=== PATIENT | female | born 1955 | race Caucasian/White ===

== ENCOUNTER → 2023-12-20 13:50 | Outpatient (CLI) | payer MEDICARE, OTHER, SELFPAY ==
--- NOTE | 2023-12-20 13:52 | DI.MG.S_ITS ---
BILATERAL DIGITAL SCREENING MAMMOGRAM 3D/2D WITH CAD: 12/20/2023 CLINICAL: Routine screening. Comparison is made to exams dated: 07/22/2021 mammogram, 07/16/2020 mammogram, and 05/08/2019 mammogram - outside location. Both breasts are heterogeneously dense, which may obscure small masses (category c / 51-75% glandular tissue). Current study was also evaluated with a Computer Aided Detection (CAD) system. No significant masses, calcifications, or other findings are seen in either breast. There has been no significant interval change. IMPRESSION: NEGATIVE There is no mammographic evidence of malignancy. A 1 year screening mammogram is recommended. Based on the Tyrer Cuzick model (a risk assessment model) the patient's lifetime risk is 8.0% and her 10 year risk is 4.1%. According to the ACR, ACS, and NCCN guidelines, an annual breast MRI exam along with mammogram is recommended if the patient's lifetime risk is 20% or greater. This exam was interpreted at Station ID: [id number]. NOTE: For mammograms, a report in lay terms will be sent to the patient. Approximately 15% of breast malignancies will not be visualized mammographically. In the management of a palpable breast mass, a negative mammogram must not discourage biopsy of a clinically suspicious lesion. Electronically Signed By: Guillermo [email or web address]:12/20/2023 14:22:15 letter sent: Normal Exam ACR BI-RADS Category 1: Negative 3341F
== END ==
PROVIDERS: PCP Student in an Organized Health Care Education/Training Program; Referring Provider Student in an Organized Health Care Education/Training Program; Visit Provider Student in an Organized Health Care Education/Training Program
DX: Z12.31 Encounter for screening mammogram for malignant neoplasm of breast (principal); R92.333 Mammographic heterogeneous density, bilateral breasts
CPT/HCPCS: 77063; 77067

== ENCOUNTER → 2024-10-02 07:04 | Outpatient (CLI) | payer MEDICARE, OTHER, SELFPAY ==
[2024-10-02 07:58] LABS: Add Manual Diff / Slide Review NO; Basophils Absolute Auto 100 /uL (0-100); Basophils Percent Auto 1.5 % (0-2); Eosinophils Absolute Auto 400 /uL (0-450); Eosinophils Percent Auto 8.3 % (2-4); Hematocrit 36.7 % (36-46); Hemoglobin 12.5 g/dL (12.0-16.0); Lymphocytes Absolute Auto 2000 /uL (1100-4500); Lymphocytes Percent Auto 44.3 % (25-40); Mean Corpuscular Hemoglobin 30.3 PG (26-34); Mean Corpuscular Volume 89.1 fL (80-100); Monocytes Absolute Auto 400 /uL (0-900); Monocytes Percent Auto 8.3 % (3-14); Neutrophils Absolute Auto 1700 /uL (1500-7000); Neutrophils Percent Auto 37.6 % (50-75); Platelet Count 224 X10^3/uL (150-400); Red Blood Cell Count 4.12 X10^6/uL (4.0-5.2); Red Cell Distribution Width 13.1 % (11.6-14.8); White Blood Cell Count 4.5 X10^3/uL (4.5-11.0)
[2024-10-02 08:17] LABS: Creatinine Urine Random 217.29 mg/dL
[2024-10-02 08:25] LABS: Alanine Aminotransferase 33 IU/L (<35); Albumin 4.2 g/dL (3.5-5.0); Albumin Globulin Ratio 1.6 (1.0-2.8); Alkaline Phosphatase 77 U/L (38-126); Aspartate Aminotransferase 57 IU/L (14-36); BUN Creatinine Ratio 23.5 (6-22); Bilirubin Total 0.6 mg/dL (0.2-1.3); Blood Urea Nitrogen 24 mg/dL (7-17); Calcium 9.5 mg/dL (8.4-10.2); Carbon Dioxide 26 mmol/L (22-32); Chloride 103 mmol/L (98-107); Cholesterol 231 mg/dL (140-199); Estimated Glomerular Filt Rate > 60 mL/min (>60); Globulin 2.7 g/dL (1.7-4.1); Glucose 95 mg/dL (80-110); HDL Cholesterol 99 mg/dL (40-60); HEMOLYSIS < 15 (0-50); LDL Cholesterol Calculated 120 mg/dL (<100); Potassium 4.2 mmol/L (3.4-5.1); Sodium 137 mmol/L (137-145); Total Protein 6.9 g/dL (6.3-8.2); Triglycerides 61 mg/dL (35-150)
== END ==
PROVIDERS: PCP Student in an Organized Health Care Education/Training Program; Referring Provider Student in an Organized Health Care Education/Training Program; Visit Provider Student in an Organized Health Care Education/Training Program
DX: I10 Essential (primary) hypertension (principal)
CPT/HCPCS: 36415; 80053; 80061; 82043; 82570; 85025

== ENCOUNTER → 2025-01-10 13:47 | Outpatient (CLI) | payer MEDICARE, OTHER, SELFPAY ==
--- NOTE | 2025-01-10 13:48 | DI.MG.S_ITS ---
MM screening mammo BI: 01/10/2025. BI-RADS: 1 CLINICAL: 69-year old female for bilateral screening mammogram. Tyrer-Cuzick lifetime risk of 5.8%. No personal or first-degree family history of breast cancer. PRIOR EXAMS 12/20/2023, outside priors 07/22/2021, 07/16/2020, and 04/13/2018. MAMMOGRAPHY TECHNIQUE: 2D and 3D (tomosynthesis) digital mammographic views obtained, with additional images as needed for full coverage. Current study was also evaluated with a Computer Aided Detection (CAD) system. DENSITY C. The breasts are heterogeneously dense, which may obscure small masses. MAMMOGRAPHY FINDINGS Bilateral: No suspicious mass, asymmetry, microcalcification, or other abnormality seen. No significant change from comparison. IMPRESSION: * No evidence of malignancy. RECOMMENDATIONS Bilateral * Annual screening mammography. OVERALL ASSESSMENT CATEGORY BI-RADS-1: Negative. The [employer] recommends annual screening mammography beginning at age 40 for women with average risk of breast cancer. ELECTRONICALLY SIGNED: Lizbet Chi M.D. on 01/10/2025 at 11:46:28 PM PT Interpreting Station ID: [id number]
== END ==
LOC: MAMMO 13:48
PROVIDERS: Family Provider Student in an Organized Health Care Education/Training Program; PCP Student in an Organized Health Care Education/Training Program; Referring Provider Student in an Organized Health Care Education/Training Program; Visit Provider Student in an Organized Health Care Education/Training Program
DX: Z12.31 Encounter for screening mammogram for malignant neoplasm of breast (principal); R92.333 Mammographic heterogeneous density, bilateral breasts
CPT/HCPCS: 77063; 77067

== ENCOUNTER 2025-01-16 17:00 | Outpatient (RCR) | payer MEDICARE, OTHER, SELFPAY ==
--- NOTE | 2024-11-06 15:11 | PT.OIE ---
Current Diagnoses Pain in left knee (11/06/24) Other specified postprocedural states (11/06/24) Past Medical History (Last Updated 07/11/23 @ 19:27 by Katia Tam) Hypertension Past Surgical History (Last Updated 07/11/23 @ 19:27 by Katia Tam) Anesthesia History of arthroscopic knee surgery (~03/2010) History of bilateral carpal tunnel release S/P LASIK surgery of both eyes (~2004) Status post total hip replacement, right (~02/16/23) Tibia fracture (~09/08/00) Visit Care Team Role Provider Type Viridiana Carson MD Attending Provider Physician Family Provider Primary Care Provider Referring Provider Specialty: Family Practice Obstetrics Address: [address] [place] [address], [facility] Email: [email or web address] Physical Therapy Initial Evaluation PT-OP-A Visit Information Start: 11/01/24 17:23 Freq: Status: Active Protocol: Document 11/06/24 07:30 [facility] (Rec: 11/06/24 08:19 [facility] [id number]) Out-Patient Physical Therapy Visit Information Visit Information Visit Type Initial Evaluation Visit Start Time 07:32 Visit Number 1 Number of SCREEN CUTTER AND TRIMMER Visits 0 PT-OP-B Current Condition Start: 11/01/24 17:23 Freq: Status: Active Protocol: Document 11/06/24 07:30 [facility] (Rec: 11/06/24 08:19 [facility] [id number]) Current Condition History of Current Condition Onset Date progressive worse since 2009 Current Complaints L knee pain History of Current Condition Pt reports she is very active and when she has been dong things then sits then when she gets up, she has to be slow because it feels like she can' t put weight into her knee and get moving right away. M,W, F goes for weight classes and goes 2-4 mile walks. Her knee can get tired after walks. Had R WILSON 2 years ago that is good. She does short bouts of run. She had med meniscectomy in 2009 after injury when windsurfing. Did PT after, but only did a couple sessions then worked on her own. Since then over time, she thinks she got some scaring and now she is noticing her flexibility is worse and doesn't have the same ROM in knee. In 2000, broke tibia and fibula when skiing and still has a miranda and screws there. Notes more swelling in L knee. In 2017, went to see ortho d/t c/o pain in knee and the doctor thought she may need knee replacement. She has been able to avoid TKA so far. Does not feel pain typically when up or when doing exercise classes . After pickleball and doing her daily activities and sits int he evening, then it hurts when she stands up from sitting. When doing yoga, notices change in her flexibility. used to go to line dancing but it is a lot of lateral movement and she would have pain in her knee. Denies back pain. L post hip occ feels something but not super frequent. Treatment Goals Patient/Caregiver Goals get flexibility, PT-OP-C Subjective Start: 11/01/24 17:23 Freq: Status: Active Protocol: Document 11/06/24 07:30 [facility] (Rec: 11/06/24 08:19 [facility] [id number]) Patient Questionnaires Lower Extremity Functional Scale LEFS Score 68 OP-PT Pain Assessment Location L knee Pain Location Details L post and lat knee, ant knee, and deep inside Description Aching Description- Other swelling, weak Frequency Intermittent Variations/Patterns post knee and into calf sore/ weak Pain Aggravating Factors Bending Other Pain Aggravating Factors get up from sitting, walk >2 miles PT-OP-D Balance Start: 11/01/24 17:23 Freq: Status: Active Protocol: Document 11/06/24 07:30 [facility] (Rec: 11/06/24 08:19 [facility] [id number]) Balance Tests Single Limb Standing Single Limb- Right >30 sec Single Limb- Left >30sec PT-OP-G Mobility & Gait Start: 11/01/24 17:23 Freq: Status: Active Protocol: Document 11/06/24 07:30 [facility] (Rec: 11/06/24 08:19 [facility] [id number]) OP Gait Assessment Comments Gait Comments harder impact on LLE w/dec push off R>L, L hip add and IR during swing PT-OP-J Posture/Palpation/Skin Start: 11/01/24 17:23 Freq: Status: Active Protocol: Document 11/06/24 07:30 [facility] (Rec: 11/06/24 08:19 [facility] [id number]) Posture Evaluation [facility] Postural Classification System Lumbar Protective Mechanism Left AP 1 Lumbar Protective Mechanism Right AP 2 Lumbar Protective Mechanism Left PA 3 Lumbar Protective Mechanism Right PA 2 Comments Posture Comments varus of L tibia, L>R femoral IR, tibial ER L, B hallux valgus, valgus L rearfoot PT-OP-K Range of Motion Start: 11/01/24 17:23 Freq: Status: Active Protocol: Document 11/06/24 07:30 [facility] (Rec: 11/06/24 08:19 [facility] [id number]) Knee Goniometric Range of Motion Knee Right Flexion Active (degrees) 134 Hyper-Extension Active 3 Left Flexion Active (degrees) 120 Extension Active (degrees) 5 PT-OP-L Special Tests Start: 11/01/24 17:23 Freq: Status: Active Protocol: Document 11/06/24 07:30 [facility] (Rec: 11/06/24 08:19 [facility] [id number]) Special Tests Knee Special Tests Straight Leg Raise Test Results WNL about 90 deg B Ian Comments quad and RF tightness L, R RF tightness Thessaly Test 20 Degrees Comments neg L Apley's Compression Comments neg L Jose Antonio Test Comments neg L Varus- 25 Degrees Comments neg L Valgus- 25 Degrees Comments neg L Posterior Draw Comments neg L Esteban's Comments neg L PT-OP-M Strength Start: 11/01/24 17:23 Freq: Status: Active Protocol: Document 11/06/24 07:30 [facility] (Rec: 11/06/24 08:19 [facility] [id number]) Hip Strength Hip Manual Muscle Testing Right Flexion (L2) 4+ Good+ Extension (S1) 4 Good Abduction 4 Good Adduction 5 Normal External Rotation 4+ Good+ Internal Rotation 5 Normal Left Flexion (L2) 4- Good- Extension (S1) 4 Good Abduction 4 Good Adduction 5 Normal External Rotation 5 Normal Internal Rotation 5 Normal Knee Strength Knee Manual Muscle Testing Right Flexion (S2) 5 Normal Extension (L3) 5 Normal Left Flexion (S2) 5 Normal Extension (L3) 5 Normal Ankle/Foot Strength Ankle and Foot Manual Muscle Testing Right Dorsiflexion (L4) 5 Normal Plantarflexion (S1) 5 Normal Comments 20 heel raises B Left Dorsiflexion (L4) 5 Normal Plantarflexion (S1) 5 Normal Comments discomfort in ankle PT-OP-Q Treatments Start: 11/01/24 17:23 Freq: Status: Active Protocol: Document 11/06/24 07:30 [facility] (Rec: 11/06/24 08:19 [facility] [id number]) Self-Care/Home Management Treatment Education Other Education 10 min: edu on foot position including her big toe position may be related ot her gait, edu on limping w/gait likely affecting her, edu that we may be able to get more ROM w/jt mobs and STM, edu glute weakness PT-OP-T Assessment and Plan Start: 11/01/24 17:23 Freq: Status: Active Protocol: Document 11/06/24 07:30 [facility] (Rec: 11/06/24 08:19 [facility] [id number]) Physical Therapy Assessment Rehab Potential Rehabilitation Potential Good Evaluation Complexity Number of Personal Factors/Comorbidities 3 or More Number of Body Systems Impaired 4 or More Clinical Presentation at Evaluation Evolving Impairments Impairments Activity Tolerance,Balance, Functional Activities, Functional Mobility,Gait,Pain, Posture,ROM,Soft Tissue Mobility,Strength,Transfers Goals ROM Short Term Goal (STG) Pt will have full knee ext w/o inc pain in L knee STG Duration 12/16 Building Repair Maintenance Supervisor Goal (LTG) Pt will have at least 130 deg flex L knee to allow greater ease w/yoga activities LTG Duration / strength Building Repair Maintenance Supervisor Goal (LTG) pt will score at least 5/5 on BLE MMT to show improved stability in order to allow greater ease with activity. LTG Duration 01/15 pain Building Repair Maintenance Supervisor Goal (LTG) Pt will report being able to consistantly transition from sitting to standing w/o inc pain or feeling of lack of stability. LTG Duration 01/15 Assessment Summary Assessment Pt presents w/L knee pain that has gotten worse since meniscectomy that she never fully recovered from in 2009. She has lost flex ROM in the knee in the past couple of years, and feels like dec overall L knee flexibility. She also gets stiffness in knee when sitting extended and then stands and has pain in L knee and she cannot WB into L knee at that time. She has weakness and dec L knee ROM notable today along w/postural changes of LLE. She would benefit from skilled PT to address these deficits and improve mobility Physical Therapy Plan Frequency and Duration Frequency of Treatment 2x/Week Duration of treatment (weeks) 10 Plan of Care Start Date 11/06/24 Plan of Care End Date 01/15/25 Therapeutic Interventions Therapeutic Interventions Balance Training,Gait Training ,Home Exercise Program,Joint Mobilizations,Manual Therapy, Neuromuscular Re-education, Patient/Caregiver Education, Self-Care/Home Management,Soft Tissue Mobilization,Taping, Therapeutic Activities, Therapeutic Exercises Modalities Cold Pack/Ice Massage,Electric Stimulation,Hot Packs, Infrared Therapy,Ultrasound Next Visit Focus/Plan Next Note Type Treatment Note Next Visit Plan review ian test stretch, HEP: sidesteps, sit to stands or squats, lunges, manual for knee tracking and flex of L knee, SL bridges, exercises for flex of L knee
--- NOTE | 2024-11-06 15:11 | PT.OPPOC ---
Physical, Occupational & Speech Therapy At [facility] Current Diagnoses Pain in left knee (11/06/24) Other specified postprocedural states (11/06/24) Visit Care Team Role Provider Type Viridiana Carson MD Attending Provider Physician Family Provider Primary Care Provider Referring Provider Specialty: Family Practice Obstetrics Address: [address] [place] [address], [facility] Email: [email or web address] Plan Of Care PT-OP-B Current Condition Start: 11/01/24 17:23 Freq: Status: Active Protocol: Document 11/06/24 07:30 [facility] (Rec: 11/06/24 08:19 [facility] [id number]) Current Condition History of Current Condition Onset Date progressive worse since 2009 Current Complaints L knee pain History of Current Condition Pt reports she is very active and when she has been dong things then sits then when she gets up, she has to be slow because it feels like she can' t put weight into her knee and get moving right away. M,W, F goes for weight classes and goes 2-4 mile walks. Her knee can get tired after walks. Had R WLISON 2 years ago that is good. She does short bouts of run. She had med meniscectomy in 2009 after injury when windsurfing. Did PT after, but only did a couple sessions then worked on her own. Since then over time, she thinks she got some scaring and now she is noticing her flexibility is worse and doesn't have the same ROM in knee. In 2000, broke tibia and fibula when skiing and still has a miranda and screws there. Notes more swelling in L knee. In 2017, went to see ortho d/t c/o pain in knee and the doctor thought she may need knee replacement. She has been able to avoid TKA so far. Does not feel pain typically when up or when doing exercise classes . After pickleball and doing her daily activities and sits int he evening, then it hurts when she stands up from sitting. When doing yoga, notices change in her flexibility. used to go to line dancing but it is a lot of lateral movement and she would have pain in her knee. Denies back pain. L post hip occ feels something but not super frequent. Treatment Goals Patient/Caregiver Goals get flexibility, PT-OP-T Assessment and Plan Start: 11/01/24 17:23 Freq: Status: Active Protocol: Document 11/06/24 07:30 [facility] (Rec: 11/06/24 08:19 [facility] [id number]) Physical Therapy Assessment Rehab Potential Rehabilitation Potential Good Evaluation Complexity Number of Personal Factors/Comorbidities 3 or More Number of Body Systems Impaired 4 or More Clinical Presentation at Evaluation Evolving Impairments Impairments Activity Tolerance,Balance, Functional Activities, Functional Mobility,Gait,Pain, Posture,ROM,Soft Tissue Mobility,Strength,Transfers Goals ROM Short Term Goal (STG) Pt will have full knee ext w/o inc pain in L knee STG Duration 12/16 Calibration Tester Goal (LTG) Pt will have at least 130 deg flex L knee to allow greater ease w/yoga activities LTG Duration 01/15 strength Calibration Tester Goal (LTG) pt will score at least 5/5 on BLE MMT to show improved stability in order to allow greater ease with activity. LTG Duration 01/15 pain Jail Goal (LTG) Pt will report being able to consistantly transition from sitting to standing w/o inc pain or feeling of lack of stability. LTG Duration 01/15 Assessment Summary Assessment Pt presents w/L knee pain that has gotten worse since meniscectomy that she never fully recovered from in 2009. She has lost flex ROM in the knee in the past couple of years, and feels like dec overall L knee flexibility. She also gets stiffness in knee when sitting extended and then stands and has pain in L knee and she cannot WB into L knee at that time. She has weakness and dec L knee ROM notable today along w/postural changes of LLE. She would benefit from skilled PT to address these deficits and improve mobility Physical Therapy Plan Frequency and Duration Frequency of Treatment 2x/Week Duration of treatment (weeks) 10 Plan of Care Start Date 11/06/24 Plan of Care End Date 01/15/25 Therapeutic Interventions Therapeutic Interventions Balance Training,Gait Training ,Home Exercise Program,Joint Mobilizations,Manual Therapy, Neuromuscular Re-education, Patient/Caregiver Education, Self-Care/Home Management,Soft Tissue Mobilization,Taping, Therapeutic Activities, Therapeutic Exercises Modalities Cold Pack/Ice Massage,Electric Stimulation,Hot Packs, Infrared Therapy,Ultrasound Next Visit Focus/Plan Next Note Type Treatment Note Next Visit Plan review kelsi test stretch, HEP: sidesteps, sit to stands or squats, lunges, manual for knee tracking and flex of L knee, SL bridges, exercises for flex of L knee Plan of Care Dates Plan of Care Start Date 11/06/24 Plan of Care End Date 01/15/25 Electronically Signed by: Latia Hunter, PT 11/06/24 [id number] If you are in agreement with this Plan of Care, please return a signed and dated copy. I have reviewed this Plan of Care and certify that the skilled therapy services above are required to meet the patient?s needs. Physician Signature Date Printed Name and Credentials Clinical Instructor Signature Printed Name and Credentials
--- NOTE | 2024-11-08 08:20 | PT.OTN ---
Current Diagnoses Pain in left knee (11/08/24) Other specified postprocedural states (11/08/24) Physical Therapy Treatment Note PT-OP-A Visit Information Start: 11/01/24 17:23 Freq: Status: Active Protocol: Document 11/08/24 07:29 [facility] (Rec: 11/08/24 08:19 [facility] [id number]) Out-Patient Physical Therapy Visit Information Visit Information Visit Type Treatment Note Visit Start Time 07:32 Visit Stop Time 08:12 Visit Number 2 Number of SINGING TELEGRAM PERFORMER Visits 0 PT-OP-B Current Condition Start: 11/01/24 17:23 Freq: Status: Active Protocol: Document 11/06/24 07:30 [facility] (Rec: 11/06/24 08:19 [facility] [id number]) Current Condition History of Current Condition Onset Date progressive worse since 2009 Current Complaints L knee pain History of Current Condition Pt reports she is very active and when she has been dong things then sits then when she gets up, she has to be slow because it feels like she can' t put weight into her knee and get moving right away. M,W, F goes for weight classes and goes 2-4 mile walks. Her knee can get tired after walks. Had R WILSON 2 years ago that is good. She does short bouts of run. She had med meniscectomy in 2009 after injury when windsurfing. Did PT after, but only did a couple sessions then worked on her own. Since then over time, she thinks she got some scaring and now she is noticing her flexibility is worse and doesn't have the same ROM in knee. In 2000, broke tibia and fibula when skiing and still has a miranda and screws there. Notes more swelling in L knee. In 2017, went to see ortho d/t c/o pain in knee and the doctor thought she may need knee replacement. She has been able to avoid TKA so far. Does not feel pain typically when up or when doing exercise classes . After pickleball and doing her daily activities and sits int he evening, then it hurts when she stands up from sitting. When doing yoga, notices change in her flexibility. used to go to line dancing but it is a lot of lateral movement and she would have pain in her knee. Denies back pain. L post hip occ feels something but not super frequent. Treatment Goals Patient/Caregiver Goals get flexibility, PT-OP-C Subjective Start: 11/01/24 17:23 Freq: Status: Active Protocol: Document 11/08/24 07:29 [facility] (Rec: 11/08/24 08:19 [facility] [id number]) OP-PT Subjective Patient Comments Patient Comments unable to do ian test on bed PT-OP-D Balance Start: 11/01/24 17:23 Freq: Status: Active Protocol: Document 11/06/24 07:30 [facility] (Rec: 11/06/24 08:19 [facility] [id number]) Balance Tests Single Limb Standing Single Limb- Right >30 sec Single Limb- Left >30sec PT-OP-G Mobility & Gait Start: 11/01/24 17:23 Freq: Status: Active Protocol: Document 11/06/24 07:30 [facility] (Rec: 11/06/24 08:19 [facility] [id number]) OP Gait Assessment Comments Gait Comments harder impact on LLE w/dec push off R>L, L hip add and IR during swing PT-OP-J Posture/Palpation/Skin Start: 11/01/24 17:23 Freq: Status: Active Protocol: Document 11/06/24 07:30 [facility] (Rec: 11/06/24 08:19 [facility] [id number]) Posture Evaluation [facility]in Postural Classification System Lumbar Protective Mechanism Left AP 1 Lumbar Protective Mechanism Right AP 2 Lumbar Protective Mechanism Left PA 3 Lumbar Protective Mechanism Right PA 2 Comments Posture Comments varus of L tibia, L>R femoral IR, tibial ER L, B hallux valgus, valgus L rearfoot PT-OP-K Range of Motion Start: 11/01/24 17:23 Freq: Status: Active Protocol: Document 11/06/24 07:30 [facility] (Rec: 11/06/24 08:19 [facility] [id number]) Knee Goniometric Range of Motion Knee Right Flexion Active (degrees) 134 Hyper-Extension Active 3 Left Flexion Active (degrees) 120 Extension Active (degrees) 5 PT-OP-L Special Tests Start: 11/01/24 17:23 Freq: Status: Active Protocol: Document 11/06/24 07:30 [facility] (Rec: 11/06/24 08:19 [facility] [id number]) Special Tests Knee Special Tests Straight Leg Raise Test Results WNL about 90 deg B Ian Comments quad and RF tightness L, R RF tightness Thessaly Test 20 Degrees Comments neg L Apley's Compression Comments neg L Jose Antonio Test Comments neg L Varus- 25 Degrees Comments neg L Valgus- 25 Degrees Comments neg L Posterior Draw Comments neg L Esteban's Comments neg L PT-OP-M Strength Start: 11/01/24 17:23 Freq: Status: Active Protocol: Document 11/06/24 07:30 [facility] (Rec: 11/06/24 08:19 [facility] [id number]) Hip Strength Hip Manual Muscle Testing Right Flexion (L2) 4+ Good+ Extension (S1) 4 Good Abduction 4 Good Adduction 5 Normal External Rotation 4+ Good+ Internal Rotation 5 Normal Left Flexion (L2) 4- Good- Extension (S1) 4 Good Abduction 4 Good Adduction 5 Normal External Rotation 5 Normal Internal Rotation 5 Normal Knee Strength Knee Manual Muscle Testing Right Flexion (S2) 5 Normal Extension (L3) 5 Normal Left Flexion (S2) 5 Normal Extension (L3) 5 Normal Ankle/Foot Strength Ankle and Foot Manual Muscle Testing Right Dorsiflexion (L4) 5 Normal Plantarflexion (S1) 5 Normal Comments 20 heel raises B Left Dorsiflexion (L4) 5 Normal Plantarflexion (S1) 5 Normal Comments discomfort in ankle PT-OP-Q Treatments Start: 11/01/24 17:23 Freq: Status: Active Protocol: Document 11/08/24 07:29 [facility] (Rec: 11/08/24 08:19 [facility] [id number]) Therapeutic Exercises Supine Exercises bridges Supine Exercise Name marching Side bilateral Reps/Minutes 15 ea Standing Exercises stretch Side left Equipment Used chair Reps/Minutes 30 sec x2 sidesteps Side bilateral Equipment Used L2 at ankles Reps/Minutes 15ft x2ea lunges Standing Exercise Name 1. lunges 2. lat lunges Side bilateral Equipment Used mirror Reps/Minutes 15 ea Comments cues for knee and hip position squats Side bilateral Equipment Used L2 at knees and mirror Reps/Minutes 2x12 Comments cues knee position Manual Therapy Treatment Consent Patient gave verbal consent for manual Yes treatment Soft Tissue Mobilization Quad Body Location L lat Mobilization Type Rolling Intensity/Depth Moderate Body Position Hooklying ITB Body Location L Mobilization Type Rolling Intensity/Depth Moderate Joint Mobilizations tibfib Joint L proximal PA Grade III tibiofemoral Grade III Comments AP tibia and femur w/flex c/r; PA patellofemoral Joint L superior, inferior, medial PT-OP-T Assessment and Plan Start: 11/01/24 17:23 Freq: Status: Active Protocol: Document 11/08/24 07:29 [facility] (Rec: 11/08/24 08:19 [facility] [id number]) Physical Therapy Assessment Goals ROM Short Term Goal (STG) Pt will have full knee ext w/o inc pain in L knee STG Duration 12/16 Shelter Goal (LTG) Pt will have at least 130 deg flex L knee to allow greater ease w/yoga activities LTG Duration 01/15 strength Shelter Goal (LTG) pt will score at least 5/5 on BLE MMT to show improved stability in order to allow greater ease with activity. LTG Duration 01/15 pain Shelter Goal (LTG) Pt will report being able to consistantly transition from sitting to standing w/o inc pain or feeling of lack of stability. LTG Duration 01/15 Assessment Summary Assessment Pt had improved form with some of her common exercises after cues today. Needed cues throughout those exercises. She does tend to have difficulty with appropriate knee tracking unless using a mirror or cues. Significant quad tightness noted Physical Therapy Plan Frequency and Duration Frequency of Treatment 2x/Week Duration of treatment (weeks) 10 Plan of Care Start Date 11/06/24 Plan of Care End Date 01/15/25 Next Visit Focus/Plan Next Note Type Treatment Note Next Visit Plan review exercises; manual to quads/ITB-consider cupping, joint mobs to hip, ankle and knee for knee tracking
--- NOTE | 2024-11-13 08:16 | PT.OTN ---
Current Diagnoses Pain in left knee (11/13/24) Other specified postprocedural states (11/13/24) Physical Therapy Treatment Note PT-OP-A Visit Information Start: 11/01/24 17:23 Freq: Status: Active Protocol: Document 11/13/24 07:34 [facility] (Rec: 11/13/24 09:03 [facility] [id number]) Out-Patient Physical Therapy Visit Information Visit Information Visit Type Treatment Note Visit Start Time 07:34 Visit Stop Time 08:16 Visit Number 3 Number of SENIOR PIPING DESIGNER Visits 1 PT-OP-B Current Condition Start: 11/01/24 17:23 Freq: Status: Active Protocol: Document 11/06/24 07:30 [facility] (Rec: 11/06/24 08:19 [facility] [id number]) Current Condition History of Current Condition Onset Date progressive worse since 2009 Current Complaints L knee pain History of Current Condition Pt reports she is very active and when she has been dong things then sits then when she gets up, she has to be slow because it feels like she can' t put weight into her knee and get moving right away. M,W, F goes for weight classes and goes 2-4 mile walks. Her knee can get tired after walks. Had R WILSON 2 years ago that is good. She does short bouts of run. She had med meniscectomy in 2009 after injury when windsurfing. Did PT after, but only did a couple sessions then worked on her own. Since then over time, she thinks she got some scaring and now she is noticing her flexibility is worse and doesn't have the same ROM in knee. In 2000, broke tibia and fibula when skiing and still has a miranda and screws there. Notes more swelling in L knee. In 2017, went to see ortho d/t c/o pain in knee and the doctor thought she may need knee replacement. She has been able to avoid TKA so far. Does not feel pain typically when up or when doing exercise classes . After pickleball and doing her daily activities and sits int he evening, then it hurts when she stands up from sitting. When doing yoga, notices change in her flexibility. used to go to line dancing but it is a lot of lateral movement and she would have pain in her knee. Denies back pain. L post hip occ feels something but not super frequent. Treatment Goals Patient/Caregiver Goals get flexibility, PT-OP-C Subjective Start: 11/01/24 17:23 Freq: Status: Active Protocol: Document 11/13/24 07:34 [facility] (Rec: 11/13/24 09:03 [facility] [id number]) OP-PT Subjective Patient Comments Patient Comments Pt reports when starts moving achiness behind L knee and calf. Worse sitting 30-40 min then initial stand into WB. She said had tibfib break has plate and screws 24 yrs ago not sure if contributed. PT-OP-D Balance Start: 11/01/24 17:23 Freq: Status: Active Protocol: Document 11/06/24 07:30 [facility] (Rec: 11/06/24 08:19 [facility] [id number]) Balance Tests Single Limb Standing Single Limb- Right >30 sec Single Limb- Left >30sec PT-OP-G Mobility & Gait Start: 11/01/24 17:23 Freq: Status: Active Protocol: Document 11/06/24 07:30 [facility] (Rec: 11/06/24 08:19 [facility] [id number]) OP Gait Assessment Comments Gait Comments harder impact on LLE w/dec push off R>L, L hip add and IR during swing PT-OP-J Posture/Palpation/Skin Start: 11/01/24 17:23 Freq: Status: Active Protocol: Document 11/06/24 07:30 [facility] (Rec: 11/06/24 08:19 [facility] [id number]) Posture Evaluation [facility] Postural Classification System Lumbar Protective Mechanism Left AP 1 Lumbar Protective Mechanism Right AP 2 Lumbar Protective Mechanism Left PA 3 Lumbar Protective Mechanism Right PA 2 Comments Posture Comments varus of L tibia, L>R femoral IR, tibial ER L, B hallux valgus, valgus L rearfoot PT-OP-K Range of Motion Start: 11/01/24 17:23 Freq: Status: Active Protocol: Document 11/06/24 07:30 [facility] (Rec: 11/06/24 08:19 [facility] [id number]) Knee Goniometric Range of Motion Knee Right Flexion Active (degrees) 134 Hyper-Extension Active 3 Left Flexion Active (degrees) 120 Extension Active (degrees) 5 PT-OP-L Special Tests Start: 11/01/24 17:23 Freq: Status: Active Protocol: Document 11/06/24 07:30 [facility] (Rec: 11/06/24 08:19 [facility] [id number]) Special Tests Knee Special Tests Straight Leg Raise Test Results WNL about 90 deg B Ian Comments quad and RF tightness L, R RF tightness Thessaly Test 20 Degrees Comments neg L Apley's Compression Comments neg L Jose Antonio Test Comments neg L Varus- 25 Degrees Comments neg L Valgus- 25 Degrees Comments neg L Posterior Draw Comments neg L Esteban's Comments neg L PT-OP-M Strength Start: 11/01/24 17:23 Freq: Status: Active Protocol: Document 11/06/24 07:30 [facility] (Rec: 11/06/24 08:19 [facility] [id number]) Hip Strength Hip Manual Muscle Testing Right Flexion (L2) 4+ Good+ Extension (S1) 4 Good Abduction 4 Good Adduction 5 Normal External Rotation 4+ Good+ Internal Rotation 5 Normal Left Flexion (L2) 4- Good- Extension (S1) 4 Good Abduction 4 Good Adduction 5 Normal External Rotation 5 Normal Internal Rotation 5 Normal Knee Strength Knee Manual Muscle Testing Right Flexion (S2) 5 Normal Extension (L3) 5 Normal Left Flexion (S2) 5 Normal Extension (L3) 5 Normal Ankle/Foot Strength Ankle and Foot Manual Muscle Testing Right Dorsiflexion (L4) 5 Normal Plantarflexion (S1) 5 Normal Comments 20 heel raises B Left Dorsiflexion (L4) 5 Normal Plantarflexion (S1) 5 Normal Comments discomfort in ankle PT-OP-Q Treatments Start: 11/01/24 17:23 Freq: Status: Active Protocol: Document 11/13/24 07:34 [facility] (Rec: 11/13/24 09:03 [facility] [id number]) Therapeutic Exercises Supine Exercises Stretching Supine Exercise Name ITB- initiated in PT Side left Equipment Used strap foot Reps/Minutes 60 SH Standing Exercises stretch Standing Exercise Name verbal review end tx- trying find chair not to high Side left Equipment Used foot on chair, contact counter for stability Reps/Minutes 30 sec x2 Comments recheck next tx sidesteps Standing Exercise Name lateral, fwd, bwd Side bilateral Equipment Used L2 at ankles Reps/Minutes 15ft x2ea Comments cues knee with behind forefoot squats Standing Exercise Name reviewed Side bilateral Equipment Used L2 at knees and mirror Reps/Minutes 2x12 Comments cues knee position Other Exercises Foam roling Other Exercise Name L HS, ITB, Quad, calf- reviewed for self STM confidence has home Equipment Used (verbal demo use of alternative use rolling pin/ stick) Reps/Minutes ed for self form/tolerance Comments VC BUE/ opp LE on floor, unweight needed for comfort, head up/TA/ back alig Manual Therapy Treatment Consent Patient gave verbal consent for manual Yes treatment Soft Tissue Mobilization Quad Body Location L RF, VL Mobilization Type Instrument Assisted,Myofascial Release,Rolling Intensity/Depth Moderate Body Position Supine Comments STMs and cupping ITB Body Location L Mobilization Type Instrument Assisted,Myofascial Release,Rolling Intensity/Depth Moderate Body Position Supine Comments STMs and cupping Joint Mobilizations tibfib Joint L proximal PA Grade III tibiofemoral Grade III Comments AP tibia and femur w/flex c/r; PA patellofemoral Joint L superior, inferior, medial Grade III PT-OP-T Assessment and Plan Start: 11/01/24 17:23 Freq: Status: Active Protocol: Document 11/13/24 07:34 [facility] (Rec: 11/13/24 09:03 [facility] [id number]) Physical Therapy Assessment Goals ROM Short Term Goal (STG) Pt will have full knee ext w/o inc pain in L knee STG Duration 615 Roper Operator Goal (LTG) Pt will have at least 130 deg flex L knee to allow greater ease w/yoga activities LTG Duration 7/15 strength Roper Operator Goal (LTG) pt will score at least 5/5 on BLE MMT to show improved stability in order to allow greater ease with activity. LTG Duration 7/15 pain Custodial Goal (LTG) Pt will report being able to consistantly transition from sitting to standing w/o inc pain or feeling of lack of stability. LTG Duration 715 Assessment Summary Assessment Pt decreased L VL>RF quad, ITB myofascial tension after manual. Instruction on positioning, set up/form use of foam roller has at home for self MF massage vs rolling pin good response with education compliment stretching support for knee mobility. Reduction occasional cues for knee alignment during resisted stepping with improved self corrections and use mirror during squats with cues R>L knee and foot with/ behind toes. Physical Therapy Plan Frequency and Duration Frequency of Treatment 2x/Week Duration of treatment (weeks) 10 Plan of Care Start Date 11/06/24 Plan of Care End Date 01/15/25 Therapeutic Interventions Therapeutic Interventions Balance Training,Gait Training ,Home Exercise Program,Joint Mobilizations,Manual Therapy, Neuromuscular Re-education, Patient/Caregiver Education, Self-Care/Home Management,Soft Tissue Mobilization,Taping, Therapeutic Activities, Therapeutic Exercises Modalities Cold Pack/Ice Massage,Electric Stimulation,Hot Packs, Infrared Therapy,Ultrasound Next Visit Focus/Plan Next Note Type Treatment Note Next Visit Plan Review HEP and progress tolerance exercises; manual to quads/ITB-check response to cupping, joint mobs to hip, ankle and knee for knee tracking
--- NOTE | 2024-11-15 07:33 | PT.OTN ---
Current Diagnoses Pain in left knee (11/15/24) Other specified postprocedural states (11/15/24) Physical Therapy Treatment Note PT-OP-A Visit Information Start: 11/01/24 17:23 Freq: Status: Active Protocol: Document 11/15/24 07:33 PG (Rec: 11/15/24 08:31 PG Laptop) Out-Patient Physical Therapy Visit Information Visit Information Visit Type Treatment Note Visit Note Briseyda TONG led tx with permission of pt and direct supervision of Nieves DUKES. Visit Start Time 07:33 Visit Stop Time 08:13 Visit Number 4 Number of CYBER SECURITY SPECIALIST Visits 2 PT-OP-B Current Condition Start: 11/01/24 17:23 Freq: Status: Active Protocol: Document 11/06/24 07:30 [facility] (Rec: 11/06/24 08:19 [facility] [id number]) Current Condition History of Current Condition Onset Date progressive worse since 2009 Current Complaints L knee pain History of Current Condition Pt reports she is very active and when she has been dong things then sits then when she gets up, she has to be slow because it feels like she can' t put weight into her knee and get moving right away. M,W, F goes for weight classes and goes 2-4 mile walks. Her knee can get tired after walks. Had R WILSON 2 years ago that is good. She does short bouts of run. She had med meniscectomy in 2009 after injury when windsurfing. Did PT after, but only did a couple sessions then worked on her own. Since then over time, she thinks she got some scaring and now she is noticing her flexibility is worse and doesn't have the same ROM in knee. In 2000, broke tibia and fibula when skiing and still has a miranda and screws there. Notes more swelling in L knee. In 2017, went to see ortho d/t c/o pain in knee and the doctor thought she may need knee replacement. She has been able to avoid TKA so far. Does not feel pain typically when up or when doing exercise classes . After pickleball and doing her daily activities and sits int he evening, then it hurts when she stands up from sitting. When doing yoga, notices change in her flexibility. used to go to line dancing but it is a lot of lateral movement and she would have pain in her knee. Denies back pain. L post hip occ feels something but not super frequent. Treatment Goals Patient/Caregiver Goals get flexibility, PT-OP-C Subjective Start: 11/01/24 17:23 Freq: Status: Active Protocol: Document 11/15/24 07:33 PG (Rec: 11/15/24 08:31 PG Laptop) OP-PT Subjective Patient Comments Patient Comments Exercises are going well, pt is hoping to take home a higher resistance band. Weight lifting classes, pt is very cautious about knee alignment. PT-OP-D Balance Start: 11/01/24 17:23 Freq: Status: Active Protocol: Document 11/06/24 07:30 [facility] (Rec: 11/06/24 08:19 [facility] [id number]) Balance Tests Single Limb Standing Single Limb- Right >30 sec Single Limb- Left >30sec PT-OP-G Mobility & Gait Start: 11/01/24 17:23 Freq: Status: Active Protocol: Document 11/06/24 07:30 [facility] (Rec: 11/06/24 08:19 [facility] [id number]) OP Gait Assessment Comments Gait Comments harder impact on LLE w/dec push off R>L, L hip add and IR during swing PT-OP-J Posture/Palpation/Skin Start: 11/01/24 17:23 Freq: Status: Active Protocol: Document 11/06/24 07:30 [facility] (Rec: 11/06/24 08:19 [facility] [id number]) Posture Evaluation [facility] Postural Classification System Lumbar Protective Mechanism Left AP 1 Lumbar Protective Mechanism Right AP 2 Lumbar Protective Mechanism Left PA 3 Lumbar Protective Mechanism Right PA 2 Comments Posture Comments varus of L tibia, L>R femoral IR, tibial ER L, B hallux valgus, valgus L rearfoot PT-OP-K Range of Motion Start: 11/01/24 17:23 Freq: Status: Active Protocol: Document 11/06/24 07:30 [facility] (Rec: 11/06/24 08:19 [facility] [id number]) Knee Goniometric Range of Motion Knee Right Flexion Active (degrees) 134 Hyper-Extension Active 3 Left Flexion Active (degrees) 120 Extension Active (degrees) 5 PT-OP-L Special Tests Start: 11/01/24 17:23 Freq: Status: Active Protocol: Document 11/06/24 07:30 [facility] (Rec: 11/06/24 08:19 [facility] [id number]) Special Tests Knee Special Tests Straight Leg Raise Test Results WNL about 90 deg B Ian Comments quad and RF tightness L, R RF tightness Thessaly Test 20 Degrees Comments neg L Apley's Compression Comments neg L Jose Antonio Test Comments neg L Varus- 25 Degrees Comments neg L Valgus- 25 Degrees Comments neg L Posterior Draw Comments neg L Esteban's Comments neg L PT-OP-M Strength Start: 11/01/24 17:23 Freq: Status: Active Protocol: Document 11/06/24 07:30 [facility] (Rec: 11/06/24 08:19 [facility] [id number]) Hip Strength Hip Manual Muscle Testing Right Flexion (L2) 4+ Good+ Extension (S1) 4 Good Abduction 4 Good Adduction 5 Normal External Rotation 4+ Good+ Internal Rotation 5 Normal Left Flexion (L2) 4- Good- Extension (S1) 4 Good Abduction 4 Good Adduction 5 Normal External Rotation 5 Normal Internal Rotation 5 Normal Knee Strength Knee Manual Muscle Testing Right Flexion (S2) 5 Normal Extension (L3) 5 Normal Left Flexion (S2) 5 Normal Extension (L3) 5 Normal Ankle/Foot Strength Ankle and Foot Manual Muscle Testing Right Dorsiflexion (L4) 5 Normal Plantarflexion (S1) 5 Normal Comments 20 heel raises B Left Dorsiflexion (L4) 5 Normal Plantarflexion (S1) 5 Normal Comments discomfort in ankle PT-OP-Q Treatments Start: 11/01/24 17:23 Freq: Status: Active Protocol: Document 11/15/24 07:33 PG (Rec: 11/15/24 08:31 PG Laptop) Therapeutic Exercises Standing Exercises Step ups Standing Exercise Name Fwrd/Lateral steps - added to HEP, no HO Side bilateral Equipment Used 6inch steps / BUE>1UE handrail Reps/Minutes several reps each Comments cued for knee alignment and increased knee extension. stretch Standing Exercise Name Reviewed, used 5 foam pads on top of chair Side left Equipment Used foot on foam atop chair, contact //bar for stability Reps/Minutes 1-2 min x2 sidesteps Standing Exercise Name Reviewed: - progressed resistance Side bilateral Equipment Used L3 ([place]) at ankles Reps/Minutes 30ft each Comments good pacing and knee alignment . Other Exercises Foam roling Other Exercise Name Verbally reviewed Manual Therapy Treatment Consent Patient gave verbal consent for manual Yes treatment Soft Tissue Mobilization Quad Body Location L RF, VL Mobilization Type Rolling Intensity/Depth Moderate Body Position Supine Comments STMs ITB Body Location L Mobilization Type Instrument Assisted,Rolling, Sustained Pressure Intensity/Depth Moderate Body Position Supine Comments STMs and cupping Joint Mobilizations tibiofemoral Grade III Comments AP tibia and femur w/flex c/r; PA PT-OP-T Assessment and Plan Start: 11/01/24 17:23 Freq: Status: Active Protocol: Document 11/15/24 07:33 PG (Rec: 11/15/24 08:31 PG Laptop) Physical Therapy Assessment Goals ROM Short Term Goal (STG) Pt will have full knee ext w/o inc pain in L knee STG Duration 12/16 Detention Goal (LTG) Pt will have at least 130 deg flex L knee to allow greater ease w/yoga activities LTG Duration 01/15 strength Detention Goal (LTG) pt will score at least 5/5 on BLE MMT to show improved stability in order to allow greater ease with activity. LTG Duration 01/15 pain Dural Mechanic Goal (LTG) Pt will report being able to consistantly transition from sitting to standing w/o inc pain or feeling of lack of stability. LTG Duration 01/15 Assessment Summary Assessment Continued with STM and cupping due to pt's good response from last tx on L ITB for decrease in tension and improved knee tracking. Progressed resisted walking with level 3 theraband at the ankles for HEP, pt demonstrated good form and awareness for knee alignment over forefoot. Initiated fwrd /lateral step ups to continue working on quad/glute strength , minimal cues for knee alignment required, added to HEP (no HO). Physical Therapy Plan Frequency and Duration Frequency of Treatment 2x/Week Duration of treatment (weeks) 10 Plan of Care Start Date 11/06/24 Plan of Care End Date 01/15/25 Therapeutic Interventions Therapeutic Interventions Balance Training,Gait Training ,Home Exercise Program,Joint Mobilizations,Manual Therapy, Neuromuscular Re-education, Patient/Caregiver Education, Self-Care/Home Management,Soft Tissue Mobilization,Taping, Therapeutic Activities, Therapeutic Exercises Modalities Cold Pack/Ice Massage,Electric Stimulation,Hot Packs, Infrared Therapy,Ultrasound Next Visit Focus/Plan Next Note Type Treatment Note Next Visit Plan Review HEP and progress tolerance exercises; manual to quads/ITB-check response to cupping, joint mobs to hip, ankle and knee for knee tracking
--- NOTE | 2024-11-20 09:45 | PT.OTN ---
Current Diagnoses Pain in left knee (11/20/24) Other specified postprocedural states (11/20/24) Physical Therapy Treatment Note PT-OP-A Visit Information Start: 11/01/24 17:23 Freq: Status: Active Protocol: Document 11/20/24 09:08 SP (Rec: 11/20/24 09:47 SP [id number]) Out-Patient Physical Therapy Visit Information Visit Information Visit Type Treatment Note Visit Start Time 09:07 Visit Stop Time 09:45 Visit Number 5 Number of BINDER AND WRAPPER PACKER Visits 3 PT-OP-B Current Condition Start: 11/01/24 17:23 Freq: Status: Active Protocol: Document 11/06/24 07:30 [facility] (Rec: 11/06/24 08:19 [facility] [id number]) Current Condition History of Current Condition Onset Date progressive worse since 2009 Current Complaints L knee pain History of Current Condition Pt reports she is very active and when she has been dong things then sits then when she gets up, she has to be slow because it feels like she can' t put weight into her knee and get moving right away. M,W, F goes for weight classes and goes 2-4 mile walks. Her knee can get tired after walks. Had R WILSON 2 years ago that is good. She does short bouts of run. She had med meniscectomy in 2009 after injury when windsurfing. Did PT after, but only did a couple sessions then worked on her own. Since then over time, she thinks she got some scaring and now she is noticing her flexibility is worse and doesn't have the same ROM in knee. In 2000, broke tibia and fibula when skiing and still has a miranda and screws there. Notes more swelling in L knee. In 2017, went to see ortho d/t c/o pain in knee and the doctor thought she may need knee replacement. She has been able to avoid TKA so far. Does not feel pain typically when up or when doing exercise classes . After pickleball and doing her daily activities and sits int he evening, then it hurts when she stands up from sitting. When doing yoga, notices change in her flexibility. used to go to line dancing but it is a lot of lateral movement and she would have pain in her knee. Denies back pain. L post hip occ feels something but not super frequent. Treatment Goals Patient/Caregiver Goals get flexibility, PT-OP-C Subjective Start: 11/01/24 17:23 Freq: Status: Active Protocol: Document 11/20/24 09:08 SP (Rec: 11/20/24 09:47 SP [id number]) OP-PT Subjective Patient Comments Patient Comments Pt reports her L ankle just little twinge at times, not sure why. PT-OP-D Balance Start: 11/01/24 17:23 Freq: Status: Active Protocol: Document 11/06/24 07:30 [facility] (Rec: 11/06/24 08:19 [facility] [id number]) Balance Tests Single Limb Standing Single Limb- Right >30 sec Single Limb- Left >30sec PT-OP-G Mobility & Gait Start: 11/01/24 17:23 Freq: Status: Active Protocol: Document 11/06/24 07:30 [facility] (Rec: 11/06/24 08:19 [facility] [id number]) OP Gait Assessment Comments Gait Comments harder impact on LLE w/dec push off R>L, L hip add and IR during swing PT-OP-J Posture/Palpation/Skin Start: 11/01/24 17:23 Freq: Status: Active Protocol: Document 11/06/24 07:30 [facility] (Rec: 11/06/24 08:19 [facility] [id number]) Posture Evaluation [facility] Postural Classification System Lumbar Protective Mechanism Left AP 1 Lumbar Protective Mechanism Right AP 2 Lumbar Protective Mechanism Left PA 3 Lumbar Protective Mechanism Right PA 2 Comments Posture Comments varus of L tibia, L>R femoral IR, tibial ER L, B hallux valgus, valgus L rearfoot PT-OP-K Range of Motion Start: 11/01/24 17:23 Freq: Status: Active Protocol: Document 11/06/24 07:30 [facility] (Rec: 11/06/24 08:19 [facility] [id number]) Knee Goniometric Range of Motion Knee Right Flexion Active (degrees) 134 Hyper-Extension Active 3 Left Flexion Active (degrees) 120 Extension Active (degrees) 5 PT-OP-L Special Tests Start: 11/01/24 17:23 Freq: Status: Active Protocol: Document 11/06/24 07:30 [facility] (Rec: 11/06/24 08:19 [facility] [id number]) Special Tests Knee Special Tests Straight Leg Raise Test Results WNL about 90 deg B Ian Comments quad and RF tightness L, R RF tightness Thessaly Test 20 Degrees Comments neg L Apley's Compression Comments neg L Jose Antonio Test Comments neg L Varus- 25 Degrees Comments neg L Valgus- 25 Degrees Comments neg L Posterior Draw Comments neg L Esteban's Comments neg L PT-OP-M Strength Start: 11/01/24 17:23 Freq: Status: Active Protocol: Document 11/06/24 07:30 [facility] (Rec: 11/06/24 08:19 [facility] [id number]) Hip Strength Hip Manual Muscle Testing Right Flexion (L2) 4+ Good+ Extension (S1) 4 Good Abduction 4 Good Adduction 5 Normal External Rotation 4+ Good+ Internal Rotation 5 Normal Left Flexion (L2) 4- Good- Extension (S1) 4 Good Abduction 4 Good Adduction 5 Normal External Rotation 5 Normal Internal Rotation 5 Normal Knee Strength Knee Manual Muscle Testing Right Flexion (S2) 5 Normal Extension (L3) 5 Normal Left Flexion (S2) 5 Normal Extension (L3) 5 Normal Ankle/Foot Strength Ankle and Foot Manual Muscle Testing Right Dorsiflexion (L4) 5 Normal Plantarflexion (S1) 5 Normal Comments 20 heel raises B Left Dorsiflexion (L4) 5 Normal Plantarflexion (S1) 5 Normal Comments discomfort in ankle PT-OP-Q Treatments Start: 11/01/24 17:23 Freq: Status: Active Protocol: Document 11/20/24 09:08 SP (Rec: 11/20/24 09:47 SP [id number]) Cardio Equipment Recumbent Bicycle Duration (Minutes) 6 Resistance 4>5 Seat Position 5 Other 75-80 RPMs- 2.62 miles Therapeutic Exercises Standing Exercises SL slider Standing Exercise Name lateral, retro Side bilateral Equipment Used front mirror for self correction awareness, prayer hands helps focus Reps/Minutes 10 reps each direction Comments mod cues for slower pacing, improved level pelvis and knee alignmenet Step ups Standing Exercise Name Fwrd/Lateral steps - reviewed Side bilateral Equipment Used 6inch steps, very light for bal 1UE handrail Reps/Minutes 15 reps x2 each Comments occasional cues for knee alignment midline with forefoot- pat click lat occ lunges Standing Exercise Name lat lunges Side bilateral Equipment Used 1. BOSU, light contact rail 2. Foam SLS lateral taps (no UE support) Reps/Minutes 15 ea side and surface Comments cues for hip hinge knee alignment, level pelvis PT-OP-T Assessment and Plan Start: 11/01/24 17:23 Freq: Status: Active Protocol: Document 11/20/24 09:08 SP (Rec: 11/20/24 09:47 SP [id number]) Physical Therapy Assessment Goals ROM Short Term Goal (STG) Pt will have full knee ext w/o inc pain in L knee STG Duration 12/16 Detention Goal (LTG) Pt will have at least 130 deg flex L knee to allow greater ease w/yoga activities LTG Duration 01/15 strength General Assignment Reporter Goal (LTG) pt will score at least 5/5 on BLE MMT to show improved stability in order to allow greater ease with activity. LTG Duration 01/15 pain Detention Goal (LTG) Pt will report being able to consistantly transition from sitting to standing w/o inc pain or feeling of lack of stability. LTG Duration 01/15 Assessment Summary Assessment Pt good response to progression SL lateral and retro activities with mod cuing for slower pacing and use of mirror for self corrections with movement hip hinge. Improves form with cues slower pacing, no pain. PRovided HO for lateral activities today. Physical Therapy Plan Frequency and Duration Frequency of Treatment 2x/Week Duration of treatment (weeks) 10 Plan of Care Start Date 11/06/24 Plan of Care End Date 01/15/25 Therapeutic Interventions Therapeutic Interventions Balance Training,Gait Training ,Home Exercise Program,Joint Mobilizations,Manual Therapy, Neuromuscular Re-education, Patient/Caregiver Education, Self-Care/Home Management,Soft Tissue Mobilization,Taping, Therapeutic Activities, Therapeutic Exercises Modalities Cold Pack/Ice Massage,Electric Stimulation,Hot Packs, Infrared Therapy,Ultrasound Next Visit Focus/Plan Next Note Type Progress Note Next Visit Plan 30 day PN next. Review HEP: added SL slider and uneven lateral stepping. POC: check L ankle twinge, manual to quads/ITB-check response to cupping, joint mobs to hip, ankle and continue progress activities for strengthening and bal with knee tracking
--- NOTE | 2024-11-29 11:28 | PT.OTN ---
Current Diagnoses Pain in left knee (11/29/24) Other specified postprocedural states (11/29/24) Physical Therapy Treatment Note PT-OP-A Visit Information Start: 11/01/24 17:23 Freq: Status: Active Protocol: Document 11/29/24 10:46 PG (Rec: 11/29/24 11:15 PG Laptop) Out-Patient Physical Therapy Visit Information Visit Information Visit Type Treatment Note Visit Note Briseyda TONG led tx with permission of pt and direct supervision of Nieves DUKES. Visit Start Time 10:46 Visit Stop Time 11:28 Visit Number 6 Number of FRAMING AND HANGING Visits 4 PT-OP-B Current Condition Start: 11/01/24 17:23 Freq: Status: Active Protocol: Document 11/06/24 07:30 [facility] (Rec: 11/06/24 08:19 [facility] [id number]) Current Condition History of Current Condition Onset Date progressive worse since 2009 Current Complaints L knee pain History of Current Condition Pt reports she is very active and when she has been dong things then sits then when she gets up, she has to be slow because it feels like she can' t put weight into her knee and get moving right away. M,W, F goes for weight classes and goes 2-4 mile walks. Her knee can get tired after walks. Had R WILSON 2 years ago that is good. She does short bouts of run. She had med meniscectomy in 2009 after injury when windsurfing. Did PT after, but only did a couple sessions then worked on her own. Since then over time, she thinks she got some scaring and now she is noticing her flexibility is worse and doesn't have the same ROM in knee. In 2000, broke tibia and fibula when skiing and still has a miranda and screws there. Notes more swelling in L knee. In 2017, went to see ortho d/t c/o pain in knee and the doctor thought she may need knee replacement. She has been able to avoid TKA so far. Does not feel pain typically when up or when doing exercise classes . After pickleball and doing her daily activities and sits int he evening, then it hurts when she stands up from sitting. When doing yoga, notices change in her flexibility. used to go to line dancing but it is a lot of lateral movement and she would have pain in her knee. Denies back pain. L post hip occ feels something but not super frequent. Treatment Goals Patient/Caregiver Goals get flexibility, PT-OP-C Subjective Start: 11/01/24 17:23 Freq: Status: Active Protocol: Document 11/29/24 10:46 PG (Rec: 11/29/24 11:15 PG Laptop) OP-PT Subjective Patient Comments Patient Comments No pain with new HEP, had some L hip pain waking up but it went away once she got up and moved around. PT-OP-D Balance Start: 11/01/24 17:23 Freq: Status: Active Protocol: Document 11/06/24 07:30 [facility] (Rec: 11/06/24 08:19 [facility] [id number]) Balance Tests Single Limb Standing Single Limb- Right >30 sec Single Limb- Left >30sec PT-OP-G Mobility & Gait Start: 11/01/24 17:23 Freq: Status: Active Protocol: Document 11/06/24 07:30 [facility] (Rec: 11/06/24 08:19 [facility] [id number]) OP Gait Assessment Comments Gait Comments harder impact on LLE w/dec push off R>L, L hip add and IR during swing PT-OP-J Posture/Palpation/Skin Start: 11/01/24 17:23 Freq: Status: Active Protocol: Document 11/06/24 07:30 [facility] (Rec: 11/06/24 08:19 [facility] [id number]) Posture Evaluation [facility] Postural Classification System Lumbar Protective Mechanism Left AP 1 Lumbar Protective Mechanism Right AP 2 Lumbar Protective Mechanism Left PA 3 Lumbar Protective Mechanism Right PA 2 Comments Posture Comments varus of L tibia, L>R femoral IR, tibial ER L, B hallux valgus, valgus L rearfoot PT-OP-K Range of Motion Start: 11/01/24 17:23 Freq: Status: Active Protocol: Document 11/06/24 07:30 [facility] (Rec: 11/06/24 08:19 [facility] [id number]) Knee Goniometric Range of Motion Knee Right Flexion Active (degrees) 134 Hyper-Extension Active 3 Left Flexion Active (degrees) 120 Extension Active (degrees) 5 PT-OP-L Special Tests Start: 11/01/24 17:23 Freq: Status: Active Protocol: Document 11/06/24 07:30 [facility] (Rec: 11/06/24 08:19 [facility] [id number]) Special Tests Knee Special Tests Straight Leg Raise Test Results WNL about 90 deg B Ian Comments quad and RF tightness L, R RF tightness Thessaly Test 20 Degrees Comments neg L Apley's Compression Comments neg L Jose Antonio Test Comments neg L Varus- 25 Degrees Comments neg L Valgus- 25 Degrees Comments neg L Posterior Draw Comments neg L Esteban's Comments neg L PT-OP-M Strength Start: 11/01/24 17:23 Freq: Status: Active Protocol: Document 11/06/24 07:30 [facility] (Rec: 11/06/24 08:19 [facility] [id number]) Hip Strength Hip Manual Muscle Testing Right Flexion (L2) 4+ Good+ Extension (S1) 4 Good Abduction 4 Good Adduction 5 Normal External Rotation 4+ Good+ Internal Rotation 5 Normal Left Flexion (L2) 4- Good- Extension (S1) 4 Good Abduction 4 Good Adduction 5 Normal External Rotation 5 Normal Internal Rotation 5 Normal Knee Strength Knee Manual Muscle Testing Right Flexion (S2) 5 Normal Extension (L3) 5 Normal Left Flexion (S2) 5 Normal Extension (L3) 5 Normal Ankle/Foot Strength Ankle and Foot Manual Muscle Testing Right Dorsiflexion (L4) 5 Normal Plantarflexion (S1) 5 Normal Comments 20 heel raises B Left Dorsiflexion (L4) 5 Normal Plantarflexion (S1) 5 Normal Comments discomfort in ankle PT-OP-Q Treatments Start: 11/01/24 17:23 Freq: Status: Active Protocol: Document 11/29/24 10:46 PG (Rec: 11/29/24 11:15 PG Laptop) Therapeutic Exercises Prone Exercises Hip flexor stretch Prone Exercise Name Added to HEP as a hip flexor stretch option (HO declined) Side bilateral Equipment Used yoga strap Reps/Minutes 30sec each Comments cued to bring foot twrd bottom , can prop on elbows as long as no LBP Standing Exercises SL Squats Standing Exercise Name Single leg squat Side bilateral Resistance AROM Equipment Used heavy/sturdy chair, 1UE for set up but no UE support Reps/Minutes 10x each Comments minimal cues for knee alignment with LLE, slow pacing SL slider Standing Exercise Name Reviewed: lateral, retro Side bilateral Resistance AROM > lvl 1 band arnd ankles Equipment Used front mirror for self correction awareness Reps/Minutes 10x3 each direction Comments mod cues for slower pacing, min cues for knee alignment Step ups Standing Exercise Name Fwrd on uneven surface: Added to HEP (gardening knee foam pad) Side bilateral Equipment Used bosu ball > airex foam to simulate HEP Reps/Minutes 10x each > 15x each Comments minimal cues for pace and knee alignment, extended knee when SLS. lunges Standing Exercise Name Reviewed: 1. fwd lunges 2. lat lunges Side bilateral Equipment Used 1. AROM 2. AROM > BOSU, light contact rail Reps/Minutes 1. 1x10 each 2. 1x10 > 1x10 each Comments 1. cues for back knee twrd grnd 2. min cues for knee alignment PT-OP-T Assessment and Plan Start: 11/01/24 17:23 Freq: Status: Active Protocol: Document 11/29/24 10:46 PG (Rec: 11/29/24 11:37 PG Laptop) Physical Therapy Assessment Goals ROM Short Term Goal (STG) Pt will have full knee ext w/o inc pain in L knee STG Duration 12/16 Assisted Goal (LTG) Pt will have at least 130 deg flex L knee to allow greater ease w/yoga activities LTG Duration / strength Assisted Goal (LTG) pt will score at least 5/5 on BLE MMT to show improved stability in order to allow greater ease with activity. LTG Duration 01/15 pain Assisted Goal (LTG) Pt will report being able to consistantly transition from sitting to standing w/o inc pain or feeling of lack of stability. LTG Duration 01/15 Assessment Summary Assessment Reviewed previously added HEP, pt required mod cues to slow pace with SL slider exercise and forward lunges to focus on knee alignment and control. Initiated more exercises for home to continue working on LE strength and neutral knee alignment. With minimal cues for knee alignment and moderate cues for slower pacing. Physical Therapy Plan Frequency and Duration Frequency of Treatment 2x/Week Duration of treatment (weeks) 10 Plan of Care Start Date 11/06/24 Plan of Care End Date 01/15/25 Therapeutic Interventions Therapeutic Interventions Balance Training,Gait Training ,Home Exercise Program,Joint Mobilizations,Manual Therapy, Neuromuscular Re-education, Patient/Caregiver Education, Self-Care/Home Management,Soft Tissue Mobilization,Taping, Therapeutic Activities, Therapeutic Exercises Modalities Cold Pack/Ice Massage,Electric Stimulation,Hot Packs, Infrared Therapy,Ultrasound Next Visit Focus/Plan Next Note Type Treatment Note Next Visit Plan 30 day PN next. Review HEP: added Step ups onto bosu ball/ air ex to simulate home equipment and SL squats ( [place] split squat) POC: check L ankle twinge, manual to quads/ITB-check response to cupping, joint mobs to hip, ankle and continue progress activities for strengthening and bal with knee tracking
--- NOTE | 2024-12-04 17:00 | PT.OTN ---
Current Diagnoses Pain in left knee (12/04/24) Other specified postprocedural states (12/04/24) Physical Therapy Treatment Note PT-OP-A Visit Information Start: 11/01/24 17:23 Freq: Status: Active Protocol: Document 12/04/24 14:01 GG (Rec: 12/04/24 17:40 GG Laptop) Out-Patient Physical Therapy Visit Information Visit Information Visit Type Progress Note Visit Start Time 13:49 Visit Stop Time 14:35 Visit Number 7 Number of TOP FRAME MAKER Visits 0 PT-OP-B Current Condition Start: 11/01/24 17:23 Freq: Status: Active Protocol: Document 11/06/24 07:30 [facility] (Rec: 11/06/24 08:19 [facility] [id number]) Current Condition History of Current Condition Onset Date progressive worse since 2009 Current Complaints L knee pain History of Current Pt reports she is very active and when she has been Condition dong things then sits then when she gets up, she has to be slow because it feels like she can't put weight into her knee and get moving right away. M,W, F goes for weight classes and goes 2-4 mile walks. Her knee can get tired after walks. Had R WILSON 2 years ago that is good. She does short bouts of run. She had med meniscectomy in 2009 after injury when windsurfing. Did PT after, but only did a couple sessions then worked on her own. Since then over time, she thinks she got some scaring and now she is noticing her flexibility is worse and doesn't have the same ROM in knee. In 2000, broke tibia and fibula when skiing and still has a miranda and screws there. Notes more swelling in L knee. In 2017, went to see ortho d/t c/o pain in knee and the doctor thought she may need knee replacement. She has been able to avoid TKA so far. Does not feel pain typically when up or when doing exercise classes. After pickleball and doing her daily activities and sits int he evening, then it hurts when she stands up from sitting. When doing yoga, notices change in her flexibility. used to go to line dancing but it is a lot of lateral movement and she would have pain in her knee. Denies back pain. L post hip occ feels something but not super frequent. Treatment Goals Patient/Caregiver get flexibility, Goals PT-OP-C Subjective Start: 11/01/24 17:23 Freq: Status: Active Protocol: Document 12/04/24 14:01 GG (Rec: 12/04/24 17:40 GG Laptop) OP-PT Subjective Patient Comments Patient Comments Pt reports that she has been very active including pickleball, yoga, and resistance training w/ no difficulty from knee. She notes that she gets feelings of instability only when initially standing after sitting for a prolonged period of time. Played pickleball for 2 hrs prior to appt today. PT-OP-D Balance Start: 11/01/24 17:23 Freq: Status: Active Protocol: Document 11/06/24 07:30 [facility] (Rec: 11/06/24 08:19 [facility] [id number]) Balance Tests Single Limb Standing Single Limb- Right >30 sec Single Limb- Left >30sec PT-OP-G Mobility & Gait Start: 11/01/24 17:23 Freq: Status: Active Protocol: Document 11/06/24 07:30 [facility] (Rec: 11/06/24 08:19 [facility] [id number]) OP Gait Assessment Comments Gait Comments harder impact on LLE w/dec push off R>L, L hip add and IR during swing PT-OP-J Posture/Palpation/Skin Start: 11/01/24 17:23 Freq: Status: Active Protocol: Document 11/06/24 07:30 [facility] (Rec: 11/06/24 08:19 [facility] [id number]) Posture Evaluation [facility] Postural Classification System Lumbar Protective 1 Mechanism Left AP Lumbar Protective 2 Mechanism Right AP Lumbar Protective 3 Mechanism Left PA Lumbar Protective 2 Mechanism Right PA Comments Posture Comments varus of L tibia, L>R femoral IR, tibial ER L, B hallux valgus, valgus L rearfoot PT-OP-K Range of Motion Start: 11/01/24 17:23 Freq: Status: Active Protocol: Document 12/04/24 14:01 [facility] (Rec: 12/04/24 14:08 [facility] [id number]) Knee Goniometric Range of Motion Knee Left Flexion Active ( 127 degrees) Extension Active ( 2 degrees) PT-OP-L Special Tests Start: 11/01/24 17:23 Freq: Status: Active Protocol: Document 11/06/24 07:30 [facility] (Rec: 11/06/24 08:19 [facility] [id number]) Special Tests Knee Special Tests Straight Leg Raise Test Results WNL about 90 deg B Ian Comments quad and RF tightness L, R RF tightness Thessaly Test 20 Degrees Comments neg L Apley's Compression Comments neg L Jose Antonio Test Comments neg L Varus- 25 Degrees Comments neg L Valgus- 25 Degrees Comments neg L Posterior Draw Comments neg L Esteban's Comments neg L PT-OP-M Strength Start: 11/01/24 17:23 Freq: Status: Active Protocol: Document 12/04/24 14:01 [facility] (Rec: 12/04/24 14:08 [facility] [id number]) Hip Strength Hip Manual Muscle Testing Right Flexion (L2) 4+ Good+ Extension (S1) 4+ Good+ Abduction 4 Good Adduction 5 Normal External Rotation 4 Good Internal Rotation 5 Normal Left Flexion (L2) 4+ Good+ Extension (S1) 4+ Good+ Abduction 4+ Good+ Adduction 5 Normal External Rotation 4+ Good+ Internal Rotation 5 Normal Comments student PT tested Knee Strength Knee Manual Muscle Testing Right Flexion (S2) 5 Normal Extension (L3) 5 Normal Left Flexion (S2) 5 Normal Extension (L3) 5 Normal PT-OP-Q Treatments Start: 11/01/24 17:23 Freq: Status: Active Protocol: Document 12/04/24 14:01 GG (Rec: 12/04/24 17:40 GG Laptop) Therapeutic Exercises Standing Exercises self mob Standing Exercise SL knee ext w/ heel raise; leaning into wall Name Side bilateral Reps/Minutes 1 min hold Comments cue to keep heel up Step ups Standing Exercise fwd onto BOSU Name Side bilateral Reps/Minutes 15x Comments cue for rail use prn lunges Standing Exercise 3-way lunge on slider; fwd/lat/bkwd Name Side bilateral Reps/Minutes 5x through Comments cue for keeping LE stacked over itself Manual Therapy Treatment Consent Patient gave verbal Yes consent for manual treatment Joint Mobilizations tibiofemoral Joint L Direction AP at femur Grade IV Body Position Supine patellofemoral Joint L side Grade IV Body Position Supine Comments 1. superior mob hold/relax w/ active knee ext; towel under ankle 2. inferior mob c/r w heel dig into table; knee bent PT-OP-T Assessment and Plan Start: 11/01/24 17:23 Freq: Status: Active Protocol: Document 12/04/24 14:01 GG (Rec: 12/04/24 17:40 GG Laptop) Physical Therapy Assessment Impairments Impairments Activity Tolerance,Balance,Functional Activities, Functional Mobility,Gait,Pain,Posture,ROM,Soft Tissue Mobility,Strength,Transfers Goals ROM Short Term Goal (STG Pt will have full knee ext w/o inc pain in L knee ) 3 - improving STG Duration 12/16 Group Home Goal (LTG) Pt will have at least 130 deg flex L knee to allow greater ease w/yoga activities 3 - improving LTG Duration 01/15 strength Head Irrigator Goal (LTG) pt will score at least 5/5 on BLE MMT to show improved stability in order to allow greater ease with activity. 12/04 - improving LTG Duration 01/15 pain Head Irrigator Goal (LTG) Pt will report being able to consistantly transition from sitting to standing w/o inc pain or feeling of lack of stability. 12/04 - no pain, only c/o instability after prolonged sitting LTG Duration 01/15 Assessment Summary Assessment Pt demonstrates improved tolerance to activities without c/o knee pain or instability during. Pt has been able to return to numerous activities including yoga and pickleball. ROM is still lacking to meet functional goals, but has improved since eval and cont to improve following manual interventions including improved extension during gait. Pt will cont to benefit from skilled PT to utilize manual interventions to increase ROM and strength to achieve better function and meet goals. Physical Therapy Plan Frequency and Duration Frequency of 2x/Week Treatment Duration of 10 treatment (weeks) Plan of Care Start 11/06/24 Date Plan of Care End 01/15/25 Date Therapeutic Interventions Therapeutic Balance Training,Gait Training,Home Exercise Program, Interventions Joint Mobilizations,Manual Therapy,Neuromuscular Re- education,Patient/Caregiver Education,Self-Care/Home Management,Soft Tissue Mobilization,Taping,Therapeutic Activities,Therapeutic Exercises Modalities Cold Pack/Ice Massage,Electric Stimulation,Hot Packs, Infrared Therapy,Ultrasound Next Visit Focus/Plan Next Note Type Treatment Note Next Visit Plan Review HEP: SL squats ([place] split squat) and knee ext self mob POC: check L ankle twinge, manual to quads/ITB-check response to cupping, joint mobs to hip/knee, ankle and continue progress activities for strengthening and bal with knee tracking
--- NOTE | 2024-12-07 13:44 | PT.OTN ---
Current Diagnoses Pain in left knee (12/07/24) Other specified postprocedural states (12/07/24) Physical Therapy Treatment Note PT-OP-A Visit Information Start: 11/01/24 17:23 Freq: Status: Active Protocol: Document 12/07/24 13:04 SP (Rec: 12/07/24 13:48 SP [id number]) Out-Patient Physical Therapy Visit Information Visit Information Visit Type Treatment Note Visit Start Time 13:04 Visit Stop Time 13:44 Visit Number 8 (08/13 with PN) Number of MANAGER GYN Visits 1 PT-OP-B Current Condition Start: 11/01/24 17:23 Freq: Status: Active Protocol: Document 11/06/24 07:30 LR (Rec: 11/06/24 08:19 [facility] [id number]) Current Condition History of Current Condition Onset Date progressive worse since 2009 Current Complaints L knee pain History of Current Pt reports she is very active and when she has been Condition dong things then sits then when she gets up, she has to be slow because it feels like she can't put weight into her knee and get moving right away. M,W, F goes for weight classes and goes 2-4 mile walks. Her knee can get tired after walks. Had R WILSON 2 years ago that is good. She does short bouts of run. She had med meniscectomy in 2009 after injury when windsurfing. Did PT after, but only did a couple sessions then worked on her own. Since then over time, she thinks she got some scaring and now she is noticing her flexibility is worse and doesn't have the same ROM in knee. In 2000, broke tibia and fibula when skiing and still has a miarnda and screws there. Notes more swelling in L knee. In 2017, went to see ortho d/t c/o pain in knee and the doctor thought she may need knee replacement. She has been able to avoid TKA so far. Does not feel pain typically when up or when doing exercise classes. After pickleball and doing her daily activities and sits int he evening, then it hurts when she stands up from sitting. When doing yoga, notices change in her flexibility. used to go to line dancing but it is a lot of lateral movement and she would have pain in her knee. Denies back pain. L post hip occ feels something but not super frequent. Treatment Goals Patient/Caregiver get flexibility, Goals PT-OP-C Subjective Start: 11/01/24 17:23 Freq: Status: Active Protocol: Document 12/07/24 13:04 SP (Rec: 12/07/24 13:48 SP [id number]) OP-PT Subjective Patient Comments Patient Comments Pt reports the new runner stance ex facing wall activity stretch on anterior L hip extension with calf heel lift while elevated R leg 90/90 front, very helpful giving more open hip extension on R, notices longer stride better. She is active in classes: takes wt/ strength classes, golfs and pickleball activities high intensity 2 hrs 4days/wk with no pain issues. Pt has baseball bruise on L hough from pickleball. PT-OP-D Balance Start: 11/01/24 17:23 Freq: Status: Active Protocol: Document 11/06/24 07:30 [facility] (Rec: 11/06/24 08:19 [facility] [id number]) Balance Tests Single Limb Standing Single Limb- Right >30 sec Single Limb- Left >30sec PT-OP-G Mobility & Gait Start: 11/01/24 17:23 Freq: Status: Active Protocol: Document 11/06/24 07:30 [facility] (Rec: 11/06/24 08:19 [facility] [id number]) OP Gait Assessment Comments Gait Comments harder impact on LLE w/dec push off R>L, L hip add and IR during swing PT-OP-J Posture/Palpation/Skin Start: 11/01/24 17:23 Freq: Status: Active Protocol: Document 11/06/24 07:30 [facility] (Rec: 11/06/24 08:19 [facility] [id number]) Posture Evaluation [facility] Postural Classification System Lumbar Protective 1 Mechanism Left AP Lumbar Protective 2 Mechanism Right AP Lumbar Protective 3 Mechanism Left PA Lumbar Protective 2 Mechanism Right PA Comments Posture Comments varus of L tibia, L>R femoral IR, tibial ER L, B hallux valgus, valgus L rearfoot PT-OP-K Range of Motion Start: 11/01/24 17:23 Freq: Status: Active Protocol: Document 12/04/24 14:01 [facility] (Rec: 12/04/24 14:08 [facility] [id number]) Knee Goniometric Range of Motion Knee Left Flexion Active ( 127 degrees) Extension Active ( 2 degrees) PT-OP-L Special Tests Start: 11/01/24 17:23 Freq: Status: Active Protocol: Document 11/06/24 07:30 [facility] (Rec: 11/06/24 08:19 [facility] [id number]) Special Tests Knee Special Tests Straight Leg Raise Test Results WNL about 90 deg B Ian Comments quad and RF tightness L, R RF tightness Thessaly Test 20 Degrees Comments neg L Apley's Compression Comments neg L Jose Antonio Test Comments neg L Varus- 25 Degrees Comments neg L Valgus- 25 Degrees Comments neg L Posterior Draw Comments neg L Esteban's Comments neg L PT-OP-M Strength Start: 11/01/24 17:23 Freq: Status: Active Protocol: Document 12/04/24 14:01 [facility] (Rec: 12/04/24 14:08 [facility] [id number]) Hip Strength Hip Manual Muscle Testing Right Flexion (L2) 4+ Good+ Extension (S1) 4+ Good+ Abduction 4 Good Adduction 5 Normal External Rotation 4 Good Internal Rotation 5 Normal Left Flexion (L2) 4+ Good+ Extension (S1) 4+ Good+ Abduction 4+ Good+ Adduction 5 Normal External Rotation 4+ Good+ Internal Rotation 5 Normal Comments student PT tested Knee Strength Knee Manual Muscle Testing Right Flexion (S2) 5 Normal Extension (L3) 5 Normal Left Flexion (S2) 5 Normal Extension (L3) 5 Normal PT-OP-Q Treatments Start: 11/01/24 17:23 Freq: Status: Active Protocol: Document 12/07/24 13:04 SP (Rec: 12/07/24 13:48 SP [id number]) Therapeutic Exercises Standing Exercises self mob Standing Exercise SL knee ext w/ heel raise; leaning into wall Name Side bilateral Reps/Minutes 1 min hold each side Comments cue to keep heel up SL Squats Standing Exercise Single leg squat Name Side bilateral Resistance AROM Equipment Used Lrg heavy/sturdy chair, no UE support (portable step hand nearby) Reps/Minutes 10x each Comments occ cues for knee alignment with LLE, slow pacing Step ups Standing Exercise fwd onto BOSU Name Side bilateral Resistance AROM, high knee flexion opp LE Reps/Minutes 15x Comments cue for rail use prn, level foot with elevated ribcage for midline stab. Manual Therapy Treatment Consent Patient gave verbal Yes consent for manual treatment Soft Tissue Mobilization Quad Body Location L RF, VL, patellar tendon, medial gastroc and HS Mobilization Type Instrument Assisted,Rolling Intensity/Depth Moderate Body Position Supine Comments STMs and cupping -Noted Bruise on L hough size of baseball- gentle glides with biofreeze assist circulation support, pt using CP for support Joint Mobilizations tibfib Joint L proximal PA Grade II tibiofemoral Joint L Direction AP at femur Grade IV Body Position Hooklying Neuro Re-Education Treatment Coordination Activities dynamic agility Details 1. Ren Skip, Side shuffle, zig/zag fwd/bwd 2. Squares quick step 3. Hops Reps/Duration 1. 30ft 2 laps each 2. 10 ft 2 laps 3. DL f/b/l/ diag, SL f/b/lat Comments Reports feels little posterior medial L knee tendon snap but not painful during ren skip, Little medial L knee and patellar tendon during SL lateral tension at PT-OP-T Assessment and Plan Start: 11/01/24 17:23 Freq: Status: Active Protocol: Document 12/07/24 13:04 SP (Rec: 12/07/24 13:48 SP [id number]) Physical Therapy Assessment Goals ROM Short Term Goal (STG Pt will have full knee ext w/o inc pain in L knee ) 63 - improving STG Duration 12/16 Industrial Welder Goal (LTG) Pt will have at least 130 deg flex L knee to allow greater ease w/yoga activities 63 - improving LTG Duration 01/15 strength Industrial Welder Goal (LTG) pt will score at least 5/5 on BLE MMT to show improved stability in order to allow greater ease with activity. 63 - improving LTG Duration 01/15 pain Industrial Welder Goal (LTG) Pt will report being able to consistantly transition from sitting to standing w/o inc pain or feeling of lack of stability. 3 - no pain, only c/o instability after prolonged sitting LTG Duration 01/15 Assessment Summary Assessment Pt tolerated tx well, improved knee stability during uneven and progressed more high level dynamic DL and SL activities today. Only reported little tendon click/ snap during ren skips and SLS small square hops. Cues for knee alignment and slower pacing for proper form. Physical Therapy Plan Frequency and Duration Frequency of 2x/Week Treatment Duration of 10 treatment (weeks) Plan of Care Start 11/06/24 Plan of Care End 01/15/25 Date Therapeutic Interventions Therapeutic Balance Training,Gait Training,Home Exercise Program, Interventions Joint Mobilizations,Manual Therapy,Neuromuscular Re- education,Patient/Caregiver Education,Self-Care/Home Management,Soft Tissue Mobilization,Taping,Therapeutic Activities,Therapeutic Exercises Modalities Cold Pack/Ice Massage,Electric Stimulation,Hot Packs, Infrared Therapy,Ultrasound Next Visit Focus/Plan Next Note Type Treatment Note Next Visit Plan Review HEP, ask ana dynamic agility and DL/SL hops last tx. Trial shuttle bal with balloon activity or SLS ball into trampoline, squat jumps, lateral skaters. POC: check L ankle twinge, manual to quads/ITB-check response to cupping, joint mobs to hip/knee, ankle and continue progress activities for strengthening and bal with knee tracking
--- NOTE | 2024-12-11 14:25 | PT.OTN ---
Addendum entered and electronically signed by Latia Hunter, PT 12/11/24 14:43: PT direct supervision and direction to student PT Urszula Gan throughout session Original Note: Current Diagnoses Pain in left knee (12/11/24) Other specified postprocedural states (12/11/24) Physical Therapy Treatment Note PT-OP-A Visit Information Start: 11/01/24 17:23 Freq: Status: Active Protocol: Document 12/11/24 08:22 GG (Rec: 12/11/24 09:03 GG [id number]) Out-Patient Physical Therapy Visit Information Visit Information Visit Type Treatment Note Visit Start Time 08:18 Visit Stop Time 09:01 Visit Number 9 Number of WELDER ASSISTANT Visits 0 PT-OP-B Current Condition Start: 11/01/24 17:23 Freq: Status: Active Protocol: Document 11/06/24 07:30 LR (Rec: 11/06/24 08:19 [facility] [id number]) Current Condition History of Current Condition Onset Date progressive worse since 2009 Current Complaints L knee pain History of Current Pt reports she is very active and when she has been Condition dong things then sits then when she gets up, she has to be slow because it feels like she can't put weight into her knee and get moving right away. M,W, F goes for weight classes and goes 2-4 mile walks. Her knee can get tired after walks. Had R WILSON 2 years ago that is good. She does short bouts of run. She had med meniscectomy in 2009 after injury when windsurfing. Did PT after, but only did a couple sessions then worked on her own. Since then over time, she thinks she got some scaring and now she is noticing her flexibility is worse and doesn't have the same ROM in knee. In 2000, broke tibia and fibula when skiing and still has a miranda and screws there. Notes more swelling in L knee. In 2017, went to see ortho d/t c/o pain in knee and the doctor thought she may need knee replacement. She has been able to avoid TKA so far. Does not feel pain typically when up or when doing exercise classes. After pickleball and doing her daily activities and sits int he evening, then it hurts when she stands up from sitting. When doing yoga, notices change in her flexibility. used to go to line dancing but it is a lot of lateral movement and she would have pain in her knee. Denies back pain. L post hip occ feels something but not super frequent. Treatment Goals Patient/Caregiver get flexibility, Goals PT-OP-C Subjective Start: 11/01/24 17:23 Freq: Status: Active Protocol: Document 12/11/24 08:22 GG (Rec: 12/11/24 09:03 GG [id number]) OP-PT Subjective Patient Comments Patient Comments Pt reports that her knee only hurts when standing up after sitting for over an hour. Reports that knee ext has remained and likes doing the self-mobilization. Plays pickleball later today. Bruise on L hough is healing. PT-OP-D Balance Start: 11/01/24 17:23 Freq: Status: Active Protocol: Document 11/06/24 07:30 [facility] (Rec: 11/06/24 08:19 [facility] [id number]) Balance Tests Single Limb Standing Single Limb- Right >30 sec Single Limb- Left >30sec PT-OP-G Mobility & Gait Start: 11/01/24 17:23 Freq: Status: Active Protocol: Document 11/06/24 07:30 [facility] (Rec: 11/06/24 08:19 [facility] [id number]) OP Gait Assessment Comments Gait Comments harder impact on LLE w/dec push off R>L, L hip add and IR during swing PT-OP-J Posture/Palpation/Skin Start: 11/01/24 17:23 Freq: Status: Active Protocol: Document 11/06/24 07:30 [facility] (Rec: 11/06/24 08:19 [facility] [id number]) Posture Evaluation [facility] Postural Classification System Lumbar Protective 1 Mechanism Left AP Lumbar Protective 2 Mechanism Right AP Lumbar Protective 3 Mechanism Left PA Lumbar Protective 2 Mechanism Right PA Comments Posture Comments varus of L tibia, L>R femoral IR, tibial ER L, B hallux valgus, valgus L rearfoot PT-OP-K Range of Motion Start: 11/01/24 17:23 Freq: Status: Active Protocol: Document 12/04/24 14:01 [facility] (Rec: 12/04/24 14:08 [facility] [id number]) Knee Goniometric Range of Motion Knee Left Flexion Active ( 127 degrees) Extension Active ( 2 degrees) PT-OP-L Special Tests Start: 11/01/24 17:23 Freq: Status: Active Protocol: Document 11/06/24 07:30 [facility] (Rec: 11/06/24 08:19 [facility] [id number]) Special Tests Knee Special Tests Straight Leg Raise Test Results WNL about 90 deg B Ian Comments quad and RF tightness L, R RF tightness Thessaly Test 20 Degrees Comments neg L Apley's Compression Comments neg L Jose Antonio Test Comments neg L Varus- 25 Degrees Comments neg L Valgus- 25 Degrees Comments neg L Posterior Draw Comments neg L Esteban's Comments neg L PT-OP-M Strength Start: 11/01/24 17:23 Freq: Status: Active Protocol: Document 12/04/24 14:01 [facility] (Rec: 12/04/24 14:08 [facility] [id number]) Hip Strength Hip Manual Muscle Testing Right Flexion (L2) 4+ Good+ Extension (S1) 4+ Good+ Abduction 4 Good Adduction 5 Normal External Rotation 4 Good Internal Rotation 5 Normal Left Flexion (L2) 4+ Good+ Extension (S1) 4+ Good+ Abduction 4+ Good+ Adduction 5 Normal External Rotation 4+ Good+ Internal Rotation 5 Normal Comments student PT tested Knee Strength Knee Manual Muscle Testing Right Flexion (S2) 5 Normal Extension (L3) 5 Normal Left Flexion (S2) 5 Normal Extension (L3) 5 Normal PT-OP-Q Treatments Start: 11/01/24 17:23 Freq: Status: Active Protocol: Document 12/11/24 08:22 GG (Rec: 12/11/24 09:03 GG [id number]) Gym Equipment Shuttle Balance red clips Comments 1. fwd: WBOS, NBOS, staggered stance w/ ball toss 2. lat: WBOS w/ ball toss, NBOS SBA Therapeutic Exercises Standing Exercises clamshells Standing Exercise against wall Name Resistance L3 band self mob Standing Exercise 1. kneeling tibfem mob w/ strap 2. kneeling tibfib mob Name w/ hand Side left Reps/Minutes 10x squats Reps/Minutes 15x Comments done before and after manual; decreased heel lift following manual Manual Therapy Treatment Consent Patient gave verbal Yes consent for manual treatment Joint Mobilizations calcaneus Joint subtalar Direction PA Grade IV Body Position Supine Comments hold in DF Other Other Manual calcaneal distraction + DF c/r Treatments PT-OP-T Assessment and Plan Start: 11/01/24 17:23 Freq: Status: Active Protocol: Document 12/11/24 08:22 GG (Rec: 12/11/24 09:03 GG [id number]) Physical Therapy Assessment Goals ROM Short Term Goal (STG Pt will have full knee ext w/o inc pain in L knee ) 3 - improving STG Duration 12/16 Ob Tech Goal (LTG) Pt will have at least 130 deg flex L knee to allow greater ease w/yoga activities 3 - improving LTG Duration 01/15 strength Mcfp Goal (LTG) pt will score at least 5/5 on BLE MMT to show improved stability in order to allow greater ease with activity. 12/04 - improving LTG Duration 01/15 pain Ob Tech Goal (LTG) Pt will report being able to consistantly transition from sitting to standing w/o inc pain or feeling of lack of stability. 12/04 - no pain, only c/o instability after prolonged sitting LTG Duration 01/15 Assessment Summary Assessment Pt tolerated new exercises well, including shuttle balance, but required occ assistance to prevent LOB. Pt cont to benefit from manual tx w/ good improvement noted to ROM. Pt also has some ROM restrictions noted at the L ankle which could be contributing to knee pain and difficulties w/ balance. Ankle ROM improved post- manual tx noted by decreased heel lift during squats. Physical Therapy Plan Frequency and Duration Frequency of 2x/Week Treatment Duration of 10 treatment (weeks) Plan of Care Start 11/06/24 Date Plan of Care End 01/15/25 Date Therapeutic Interventions Therapeutic Balance Training,Gait Training,Home Exercise Program, Interventions Joint Mobilizations,Manual Therapy,Neuromuscular Re- education,Patient/Caregiver Education,Self-Care/Home Management,Soft Tissue Mobilization,Taping,Therapeutic Activities,Therapeutic Exercises Modalities Cold Pack/Ice Massage,Electric Stimulation,Hot Packs, Infrared Therapy,Ultrasound Next Visit Focus/Plan Next Note Type Treatment Note Next Visit Plan Review HEP, ask ana dynamic agility and DL/SL hops last tx and self-mobs. Trial SLS ball into trampoline, squat jumps, lateral skaters. POC: check L ankle twinge, manual to quads/ITB-check response to cupping, joint mobs to hip/knee, ankle and continue progress activities for strengthening and bal with knee tracking
--- NOTE | 2024-12-13 16:42 | PT.OTN ---
Addendum entered and electronically signed by Latia Hunter, PT 12/17/24 09:37: PT direct supervision and direction to student PT Urszula Gan throughout session Original Note: Current Diagnoses Pain in left knee (12/13/24) Other specified postprocedural states (12/13/24) Physical Therapy Treatment Note PT-OP-A Visit Information Start: 11/01/24 17:23 Freq: Status: Active Protocol: Document 12/13/24 08:23 GG (Rec: 12/13/24 09:06 GG [id number]) Out-Patient Physical Therapy Visit Information Visit Information Visit Type Treatment Note Visit Start Time 08:22 Visit Stop Time 09:04 Visit Number 10 Number of MASK DESIGNER Visits 0 PT-OP-B Current Condition Start: 11/01/24 17:23 Freq: Status: Active Protocol: Document 11/06/24 07:30 LR (Rec: 11/06/24 08:19 [facility] [id number]) Current Condition History of Current Condition Onset Date progressive worse since 2009 Current Complaints L knee pain History of Current Pt reports she is very active and when she has been Condition dong things then sits then when she gets up, she has to be slow because it feels like she can't put weight into her knee and get moving right away. M,W, F goes for weight classes and goes 2-4 mile walks. Her knee can get tired after walks. Had R WILSON 2 years ago that is good. She does short bouts of run. She had med meniscectomy in 2009 after injury when windsurfing. Did PT after, but only did a couple sessions then worked on her own. Since then over time, she thinks she got some scaring and now she is noticing her flexibility is worse and doesn't have the same ROM in knee. In 2000, broke tibia and fibula when skiing and still has a miranda and screws there. Notes more swelling in L knee. In 2017, went to see ortho d/t c/o pain in knee and the doctor thought she may need knee replacement. She has been able to avoid TKA so far. Does not feel pain typically when up or when doing exercise classes. After pickleball and doing her daily activities and sits int he evening, then it hurts when she stands up from sitting. When doing yoga, notices change in her flexibility. used to go to line dancing but it is a lot of lateral movement and she would have pain in her knee. Denies back pain. L post hip occ feels something but not super frequent. Treatment Goals Patient/Caregiver get flexibility, Goals PT-OP-C Subjective Start: 11/01/24 17:23 Freq: Status: Active Protocol: Document 12/13/24 08:23 GG (Rec: 12/13/24 09:06 GG [id number]) OP-PT Subjective Patient Comments Patient Comments Pt reports that she has been playing pickleball and golf, both feel good and no knee pain. HEP is still challenging, but able to do w/o pain. PT-OP-D Balance Start: 11/01/24 17:23 Freq: Status: Active Protocol: Document 11/06/24 07:30 [facility] (Rec: 11/06/24 08:19 [facility] [id number]) Balance Tests Single Limb Standing Single Limb- Right >30 sec Single Limb- Left >30sec PT-OP-G Mobility & Gait Start: 11/01/24 17:23 Freq: Status: Active Protocol: Document 11/06/24 07:30 [facility] (Rec: 11/06/24 08:19 [facility] [id number]) OP Gait Assessment Comments Gait Comments harder impact on LLE w/dec push off R>L, L hip add and IR during swing PT-OP-J Posture/Palpation/Skin Start: 11/01/24 17:23 Freq: Status: Active Protocol: Document 11/06/24 07:30 [facility] (Rec: 11/06/24 08:19 [facility] [id number]) Posture Evaluation [facility] Postural Classification System Lumbar Protective 1 Mechanism Left AP Lumbar Protective 2 Mechanism Right AP Lumbar Protective 3 Mechanism Left PA Lumbar Protective 2 Mechanism Right PA Comments Posture Comments varus of L tibia, L>R femoral IR, tibial ER L, B hallux valgus, valgus L rearfoot PT-OP-K Range of Motion Start: 11/01/24 17:23 Freq: Status: Active Protocol: Document 12/04/24 14:01 [facility] (Rec: 12/04/24 14:08 [facility] [id number]) Knee Goniometric Range of Motion Knee Left Flexion Active ( 127 degrees) Extension Active ( 2 degrees) PT-OP-L Special Tests Start: 11/01/24 17:23 Freq: Status: Active Protocol: Document 11/06/24 07:30 [facility] (Rec: 11/06/24 08:19 [facility] [id number]) Special Tests Knee Special Tests Straight Leg Raise Test Results WNL about 90 deg B Ian Comments quad and RF tightness L, R RF tightness Thessaly Test 20 Degrees Comments neg L Apley's Compression Comments neg L Jose Antonio Test Comments neg L Varus- 25 Degrees Comments neg L Valgus- 25 Degrees Comments neg L Posterior Draw Comments neg L Esteban's Comments neg L PT-OP-M Strength Start: 11/01/24 17:23 Freq: Status: Active Protocol: Document 12/04/24 14:01 [facility] (Rec: 12/04/24 14:08 [facility] [id number]) Hip Strength Hip Manual Muscle Testing Right Flexion (L2) 4+ Good+ Extension (S1) 4+ Good+ Abduction 4 Good Adduction 5 Normal External Rotation 4 Good Internal Rotation 5 Normal Left Flexion (L2) 4+ Good+ Extension (S1) 4+ Good+ Abduction 4+ Good+ Adduction 5 Normal External Rotation 4+ Good+ Internal Rotation 5 Normal Comments student PT tested Knee Strength Knee Manual Muscle Testing Right Flexion (S2) 5 Normal Extension (L3) 5 Normal Left Flexion (S2) 5 Normal Extension (L3) 5 Normal PT-OP-Q Treatments Start: 11/01/24 17:23 Freq: Status: Active Protocol: Document 12/13/24 08:23 GG (Rec: 12/13/24 09:06 GG [id number]) Therapeutic Exercises Supine Exercises bridges Supine Exercise Name w/ HS curl on ball Comments 55cm 15x, 65cm 10x Standing Exercises skater jumps Standing Exercise lateral Name Side bilateral Reps/Minutes 15x self mob Standing Exercise 1. kneeling tibfem mob w/ strap 2. kneeling tibfib mob Name w/ hand Side left Reps/Minutes 10x Step ups Standing Exercise lateral on 4 and 6 Name Side bilateral Reps/Minutes 4 15x, 6 8x Comments cue to slow and control leg motion sidesteps Standing Exercise onto BOSU, hold SL 5s Name Reps/Minutes 10x B squats Standing Exercise jumps Name Reps/Minutes 10x no band, 10x L1 band at knees Comments cue to land quietly Manual Therapy Treatment Consent Patient gave verbal Yes consent for manual treatment Joint Mobilizations tibiofemoral Joint L Direction AP at femur Grade IV Body Position Supine patellofemoral Joint L Grade IV Body Position Supine Comments 1. med/lat in ext 2. superior in knee ext 3. inferior in knee flex PT-OP-T Assessment and Plan Start: 11/01/24 17:23 Freq: Status: Active Protocol: Document 12/13/24 08:23 GG (Rec: 12/13/24 09:06 GG [id number]) Physical Therapy Assessment Goals ROM Short Term Goal (STG Pt will have full knee ext w/o inc pain in L knee ) 12/04 - improving STG Duration 12/16 Prison Goal (LTG) Pt will have at least 130 deg flex L knee to allow greater ease w/yoga activities 12/04 - improving LTG Duration 01/15 strength Pole Framer Machine Goal (LTG) pt will score at least 5/5 on BLE MMT to show improved stability in order to allow greater ease with activity. 12/04 - improving LTG Duration 01/15 pain Pole Framer Machine Goal (LTG) Pt will report being able to consistantly transition from sitting to standing w/o inc pain or feeling of lack of stability. 12/04 - no pain, only c/o instability after prolonged sitting LTG Duration 01/15 Assessment Summary Assessment Primarily focused on landing strategies from a lateral position and DL landing, pt showed reduced control w/ landing and weight acceptance, but saw improvement following cueing and slowing movement down to focus on control. Pt showed good retention and understanding of self-mobilizations w/ HEP. Manual interventions cont to improve knee ROM. Physical Therapy Plan Frequency and Duration Frequency of 2x/Week Treatment Duration of 10 treatment (weeks) Plan of Care Start 11/06/24 Date Plan of Care End 01/15/25 Date Therapeutic Interventions Therapeutic Balance Training,Gait Training,Home Exercise Program, Interventions Joint Mobilizations,Manual Therapy,Neuromuscular Re- education,Patient/Caregiver Education,Self-Care/Home Management,Soft Tissue Mobilization,Taping,Therapeutic Activities,Therapeutic Exercises Modalities Cold Pack/Ice Massage,Electric Stimulation,Hot Packs, Infrared Therapy,Ultrasound Next Visit Focus/Plan Next Note Type Treatment Note Next Visit Plan Review HEP, Trial SLS ball into trampoline, SLS on BOSU , cont dynamic activities and landing strategies, self- mob for ankle manual to quads/ITB-check response to cupping, joint mobs to hip/knee, ankle and continue progress activities for strengthening and bal with knee tracking
--- NOTE | 2024-12-25 12:27 | PT.OTN ---
Current Diagnoses Pain in left knee (12/25/24) Other specified postprocedural states (12/25/24) Physical Therapy Treatment Note PT-OP-A Visit Information Start: 11/01/24 17:23 Freq: Status: Active Protocol: Document 12/25/24 08:17 [facility] (Rec: 12/25/24 12:26 [facility] [id number]) Out-Patient Physical Therapy Visit Information Visit Information Visit Type Treatment Note Visit Start Time 08:20 Visit Stop Time 09:00 Visit Number 11 Number of ADOLESCENT PSYCHIATRIST Visits 0 PT-OP-B Current Condition Start: 11/01/24 17:23 Freq: Status: Active Protocol: Document 11/06/24 07:30 [facility] (Rec: 11/06/24 08:19 [facility] [id number]) Current Condition History of Current Condition Onset Date progressive worse since 2009 Current Complaints L knee pain History of Current Pt reports she is very active and when she has been Condition dong things then sits then when she gets up, she has to be slow because it feels like she can't put weight into her knee and get moving right away. M,W, F goes for weight classes and goes 2-4 mile walks. Her knee can get tired after walks. Had R WILSON 2 years ago that is good. She does short bouts of run. She had med meniscectomy in 2009 after injury when windsurfing. Did PT after, but only did a couple sessions then worked on her own. Since then over time, she thinks she got some scaring and now she is noticing her flexibility is worse and doesn't have the same ROM in knee. In 2000, broke tibia and fibula when skiing and still has a miranda and screws there. Notes more swelling in L knee. In 2017, went to see ortho d/t c/o pain in knee and the doctor thought she may need knee replacement. She has been able to avoid TKA so far. Does not feel pain typically when up or when doing exercise classes. After pickleball and doing her daily activities and sits int he evening, then it hurts when she stands up from sitting. When doing yoga, notices change in her flexibility. used to go to line dancing but it is a lot of lateral movement and she would have pain in her knee. Denies back pain. L post hip occ feels something but not super frequent. Treatment Goals Patient/Caregiver get flexibility, Goals PT-OP-C Subjective Start: 11/01/24 17:23 Freq: Status: Active Protocol: Document 12/25/24 08:17 [facility] (Rec: 12/25/24 12:26 [facility] [id number]) OP-PT Subjective Patient Comments Patient Comments Pt reports her knee still gets tight after sitting a long time but still not always. PT-OP-D Balance Start: 11/01/24 17:23 Freq: Status: Active Protocol: Document 11/06/24 07:30 [facility] (Rec: 11/06/24 08:19 [facility] [id number]) Balance Tests Single Limb Standing Single Limb- Right >30 sec Single Limb- Left >30sec PT-OP-G Mobility & Gait Start: 11/01/24 17:23 Freq: Status: Active Protocol: Document 11/06/24 07:30 [facility] (Rec: 11/06/24 08:19 [facility] [id number]) OP Gait Assessment Comments Gait Comments harder impact on LLE w/dec push off R>L, L hip add and IR during swing PT-OP-J Posture/Palpation/Skin Start: 11/01/24 17:23 Freq: Status: Active Protocol: Document 11/06/24 07:30 [facility] (Rec: 11/06/24 08:19 [facility] [id number]) Posture Evaluation [facility] Postural Classification System Lumbar Protective 1 Mechanism Left AP Lumbar Protective 2 Mechanism Right AP Lumbar Protective 3 Mechanism Left PA Lumbar Protective 2 Mechanism Right PA Comments Posture Comments varus of L tibia, L>R femoral IR, tibial ER L, B hallux valgus, valgus L rearfoot PT-OP-K Range of Motion Start: 11/01/24 17:23 Freq: Status: Active Protocol: Document 12/04/24 14:01 [facility] (Rec: 12/04/24 14:08 [facility] [id number]) Knee Goniometric Range of Motion Knee Left Flexion Active ( 127 degrees) Extension Active ( 2 degrees) PT-OP-L Special Tests Start: 11/01/24 17:23 Freq: Status: Active Protocol: Document 11/06/24 07:30 [facility] (Rec: 11/06/24 08:19 [facility] [id number]) Special Tests Knee Special Tests Straight Leg Raise Test Results WNL about 90 deg B Ian Comments quad and RF tightness L, R RF tightness Thessaly Test 20 Degrees Comments neg L Apley's Compression Comments neg L Jose Antonio Test Comments neg L Varus- 25 Degrees Comments neg L Valgus- 25 Degrees Comments neg L Posterior Draw Comments neg L Esteban's Comments neg L PT-OP-M Strength Start: 11/01/24 17:23 Freq: Status: Active Protocol: Document 12/04/24 14:01 [facility] (Rec: 12/04/24 14:08 [facility] [id number]) Hip Strength Hip Manual Muscle Testing Right Flexion (L2) 4+ Good+ Extension (S1) 4+ Good+ Abduction 4 Good Adduction 5 Normal External Rotation 4 Good Internal Rotation 5 Normal Left Flexion (L2) 4+ Good+ Extension (S1) 4+ Good+ Abduction 4+ Good+ Adduction 5 Normal External Rotation 4+ Good+ Internal Rotation 5 Normal Comments student PT tested Knee Strength Knee Manual Muscle Testing Right Flexion (S2) 5 Normal Extension (L3) 5 Normal Left Flexion (S2) 5 Normal Extension (L3) 5 Normal PT-OP-Q Treatments Start: 11/01/24 17:23 Freq: Status: Active Protocol: Document 12/25/24 08:17 [facility] (Rec: 12/25/24 12:26 [facility] [id number]) Gym Equipment Shuttle Rebound SLS Comments B trials w/reaching up, R and L w/BUEs Manual Therapy Treatment Consent Patient gave verbal Yes consent for manual treatment Soft Tissue Mobilization Quad Body Location L VL, RF Mobilization Type Rolling Intensity/Depth Moderate Body Position Supine Joint Mobilizations tibfib Comments AP and distraction fib tibiofemoral Comments L med tibial & AP tibia and femur c/r patellofemoral Joint L Grade IV Body Position Supine Comments sup, med, inf w/quad sets Neuro Re-Education Treatment Balance Activities SLS Comments clock taps in mini squat: 12, 3, 6, 9 o'clock x6 ea direction PT-OP-T Assessment and Plan Start: 11/01/24 17:23 Freq: Status: Active Protocol: Document 12/25/24 08:17 [facility] (Rec: 12/25/24 12:26 [facility] [id number]) Physical Therapy Assessment Goals ROM Short Term Goal (STG Pt will have full knee ext w/o inc pain in L knee ) 12/04 - improving 12/25-improves after manual STG Duration 01/01 Skilled Nursing Goal (LTG) Pt will have at least 130 deg flex L knee to allow greater ease w/yoga activities 12/04 - improving 12/25-improves LTG Duration 01/29 strength Registrar [employer] Goal (LTG) pt will score at least 5/5 on BLE MMT to show improved stability in order to allow greater ease with activity. 12/04 - improving 12/25-n/t but improved strength noted by exercises performance LTG Duration 01/29 pain [employer] Goal (LTG) Pt will report being able to consistantly transition from sitting to standing w/o inc pain or feeling of lack of stability. 12/04 - no pain, only c/o instability after prolonged sitting 12/25 no change LTG Duration 01/29 Assessment Summary Assessment Pt making good progress with PT and improving with stability and balance. Still pain/weakness when first stands up but is able to participate in her recreational activities. She would benefit from cont PT to solidify HEP and improve ROM. Physical Therapy Plan Frequency and Duration Frequency of 1x/Week Treatment Duration of 5 treatment (weeks) Plan of Care Start 12/25/24 Date Plan of Care End 01/29/25 Date Therapeutic Interventions Therapeutic Balance Training,Gait Training,Home Exercise Program, Interventions Joint Mobilizations,Manual Therapy,Neuromuscular Re- education,Patient/Caregiver Education,Self-Care/Home Management,Soft Tissue Mobilization,Taping,Therapeutic Activities,Therapeutic Exercises Modalities Cold Pack/Ice Massage,Electric Stimulation,Hot Packs, Infrared Therapy,Ultrasound Next Visit Focus/Plan Next Note Type Treatment Note Next Visit Plan SLS ball into tramp, SLS on bosu and dynamic balance on unstable surface, self mob to ankle, cont manual to knee for ROM
--- NOTE | 2024-12-25 12:27 | PT.OPPOC ---
Physical, Occupational & Speech Therapy At [facility] Current Diagnoses Pain in left knee (12/25/24) Other specified postprocedural states (12/25/24) Visit Care Team Role Provider Type Viridiana Carson MD Attending Provider Physician Family Provider Primary Care Provider Referring Provider Specialty: Family Practice Obstetrics Address: [address] [place] [address], [id number] Email: [email or web address] Plan Of Care PT-OP-B Current Condition Start: 11/01/24 17:23 Freq: Status: Active Protocol: Document 11/06/24 07:30 [facility] (Rec: 11/06/24 08:19 [facility] [id number]) Current Condition History of Current Condition Onset Date progressive worse since 2009 Current Complaints L knee pain History of Current Pt reports she is very active and when she has been Condition dong things then sits then when she gets up, she has to be slow because it feels like she can't put weight into her knee and get moving right away. M,W, F goes for weight classes and goes 2-4 mile walks. Her knee can get tired after walks. Had R WILSON 2 years ago that is good. She does short bouts of run. She had med meniscectomy in 2009 after injury when windsurfing. Did PT after, but only did a couple sessions then worked on her own. Since then over time, she thinks she got some scaring and now she is noticing her flexibility is worse and doesn't have the same ROM in knee. In 2000, broke tibia and fibula when skiing and still has a miranda and screws there. Notes more swelling in L knee. In 2017, went to see ortho d/t c/o pain in knee and the doctor thought she may need knee replacement. She has been able to avoid TKA so far. Does not feel pain typically when up or when doing exercise classes. After pickleball and doing her daily activities and sits int he evening, then it hurts when she stands up from sitting. When doing yoga, notices change in her flexibility. used to go to line dancing but it is a lot of lateral movement and she would have pain in her knee. Denies back pain. L post hip occ feels something but not super frequent. Treatment Goals Patient/Caregiver get flexibility, Goals PT-OP-T Assessment and Plan Start: 11/01/24 17:23 Freq: Status: Active Protocol: Document 12/25/24 08:17 [facility] (Rec: 12/25/24 12:26 [facility] [id number]) Physical Therapy Assessment Goals ROM Short Term Goal (STG Pt will have full knee ext w/o inc pain in L knee ) 12/04 - improving 12/25-improves after manual STG Duration 01/01 Director Of [employer] Goal (LTG) Pt will have at least 130 deg flex L knee to allow greater ease w/yoga activities 12/04 - improving 12/25-improves LTG Duration 01/29 strength Director Of [employer] Goal (LTG) pt will score at least 5/5 on BLE MMT to show improved stability in order to allow greater ease with activity. 12/04 - improving 12/25-n/t but improved strength noted by exercises performance LTG Duration 01/29 pain Director [employer] Goal (LTG) Pt will report being able to consistantly transition from sitting to standing w/o inc pain or feeling of lack of stability. 12/04 - no pain, only c/o instability after prolonged sitting 12/25 no change LTG Duration 01/29 Assessment Summary Assessment Pt making good progress with PT and improving with stability and balance. Still pain/weakness when first stands up but is able to participate in her recreational activities. She would benefit from cont PT to solidify HEP and improve ROM. Physical Therapy Plan Frequency and Duration Frequency of 1x/Week Treatment Duration of 5 treatment (weeks) Plan of Care Start 12/25/24 Date Plan of Care End 01/29/25 Date Therapeutic Interventions Therapeutic Balance Training,Gait Training,Home Exercise Program, Interventions Joint Mobilizations,Manual Therapy,Neuromuscular Re- education,Patient/Caregiver Education,Self-Care/Home Management,Soft Tissue Mobilization,Taping,Therapeutic Activities,Therapeutic Exercises Modalities Cold Pack/Ice Massage,Electric Stimulation,Hot Packs, Infrared Therapy,Ultrasound Next Visit Focus/Plan Next Note Type Treatment Note Next Visit Plan SLS ball into tramp, SLS on bosu and dynamic balance on unstable surface, self mob to ankle, cont manual to knee for ROM Plan of Care Dates Plan of Care Start Date 12/25/24 Plan of Care End Date 01/29/25 Electronically Signed by: Latia Hunter, PT 12/25/24 [id number] If you are in agreement with this Plan of Care, please return a signed and dated copy. I have reviewed this Plan of Care and certify that the skilled therapy services above are required to meet the patient?s needs. Physician Signature Date Printed Name and Credentials Clinical Instructor Signature Printed Name and Credentials
--- NOTE | 2025-01-01 17:40 | PT.OTN ---
Addendum entered and electronically signed by Latia Hunter, PT 01/01/25 18:11: PT direct supervision and direction to student PT Urszula Gan throughout session Original Note: Current Diagnoses Pain in left knee (01/01/25) Other specified postprocedural states (01/01/25) Physical Therapy Treatment Note PT-OP-A Visit Information Start: 11/01/24 17:23 Freq: Status: Active Protocol: Document 01/01/25 07:31 GG (Rec: 01/01/25 08:23 GG [id number]) Out-Patient Physical Therapy Visit Information Visit Information Visit Type Treatment Note Visit Start Time 07:32 Visit Stop Time 08:13 Visit Number 12 Number of FISHING GEAR MECHANIC Visits 0 PT-OP-B Current Condition Start: 11/01/24 17:23 Freq: Status: Active Protocol: Document 11/06/24 07:30 LR (Rec: 11/06/24 08:19 [facility] [id number]) Current Condition History of Current Condition Onset Date progressive worse since 2009 Current Complaints L knee pain History of Current Pt reports she is very active and when she has been Condition dong things then sits then when she gets up, she has to be slow because it feels like she can't put weight into her knee and get moving right away. M,W, F goes for weight classes and goes 2-4 mile walks. Her knee can get tired after walks. Had R WILSON 2 years ago that is good. She does short bouts of run. She had med meniscectomy in 2009 after injury when windsurfing. Did PT after, but only did a couple sessions then worked on her own. Since then over time, she thinks she got some scaring and now she is noticing her flexibility is worse and doesn't have the same ROM in knee. In 2000, broke tibia and fibula when skiing and still has a miranda and screws there. Notes more swelling in L knee. In 2017, went to see ortho d/t c/o pain in knee and the doctor thought she may need knee replacement. She has been able to avoid TKA so far. Does not feel pain typically when up or when doing exercise classes. After pickleball and doing her daily activities and sits int he evening, then it hurts when she stands up from sitting. When doing yoga, notices change in her flexibility. used to go to line dancing but it is a lot of lateral movement and she would have pain in her knee. Denies back pain. L post hip occ feels something but not super frequent. Treatment Goals Patient/Caregiver get flexibility, Goals PT-OP-C Subjective Start: 11/01/24 17:23 Freq: Status: Active Protocol: Document 01/01/25 07:31 GG (Rec: 01/01/25 08:23 GG [id number]) OP-PT Subjective Patient Comments Patient Comments Pt reports her knee occasionally still gets tight after sitting a long time. Notes some sporadic L hip pain when she gets up in the morning that goes away w/ movement. PT-OP-D Balance Start: 11/01/24 17:23 Freq: Status: Active Protocol: Document 11/06/24 07:30 [facility] (Rec: 11/06/24 08:19 [facility] [id number]) Balance Tests Single Limb Standing Single Limb- Right >30 sec Single Limb- Left >30sec PT-OP-G Mobility & Gait Start: 11/01/24 17:23 Freq: Status: Active Protocol: Document 11/06/24 07:30 [facility] (Rec: 11/06/24 08:19 [facility] [id number]) OP Gait Assessment Comments Gait Comments harder impact on LLE w/dec push off R>L, L hip add and IR during swing PT-OP-J Posture/Palpation/Skin Start: 11/01/24 17:23 Freq: Status: Active Protocol: Document 11/06/24 07:30 [facility] (Rec: 11/06/24 08:19 [facility] [id number]) Posture Evaluation [facility] Postural Classification System Lumbar Protective 1 Mechanism Left AP Lumbar Protective 2 Mechanism Right AP Lumbar Protective 3 Mechanism Left PA Lumbar Protective 2 Mechanism Right PA Comments Posture Comments varus of L tibia, L>R femoral IR, tibial ER L, B hallux valgus, valgus L rearfoot PT-OP-K Range of Motion Start: 11/01/24 17:23 Freq: Status: Active Protocol: Document 12/04/24 14:01 [facility] (Rec: 12/04/24 14:08 [facility] [id number]) Knee Goniometric Range of Motion Knee Left Flexion Active ( 127 degrees) Extension Active ( 2 degrees) PT-OP-L Special Tests Start: 11/01/24 17:23 Freq: Status: Active Protocol: Document 11/06/24 07:30 [facility] (Rec: 11/06/24 08:19 [facility] [id number]) Special Tests Knee Special Tests Straight Leg Raise Test Results WNL about 90 deg B Ian Comments quad and RF tightness L, R RF tightness Thessaly Test 20 Degrees Comments neg L Apley's Compression Comments neg L Jose Antonio Test Comments neg L Varus- 25 Degrees Comments neg L Valgus- 25 Degrees Comments neg L Posterior Draw Comments neg L Esteban's Comments neg L PT-OP-M Strength Start: 11/01/24 17:23 Freq: Status: Active Protocol: Document 12/04/24 14:01 [facility] (Rec: 12/04/24 14:08 [facility] [id number]) Hip Strength Hip Manual Muscle Testing Right Flexion (L2) 4+ Good+ Extension (S1) 4+ Good+ Abduction 4 Good Adduction 5 Normal External Rotation 4 Good Internal Rotation 5 Normal Left Flexion (L2) 4+ Good+ Extension (S1) 4+ Good+ Abduction 4+ Good+ Adduction 5 Normal External Rotation 4+ Good+ Internal Rotation 5 Normal Comments student PT tested Knee Strength Knee Manual Muscle Testing Right Flexion (S2) 5 Normal Extension (L3) 5 Normal Left Flexion (S2) 5 Normal Extension (L3) 5 Normal PT-OP-Q Treatments Start: 11/01/24 17:23 Freq: Status: Active Protocol: Document 01/01/25 07:31 GG (Rec: 01/01/25 08:23 GG [id number]) Gym Equipment Shuttle Rebound SLS Comments 8x on blue tpad, 20x B on ground Manual Therapy Treatment Consent Patient gave verbal Yes consent for manual treatment Soft Tissue Mobilization Quad Body Location L RF, iliopsoas Mobilization Type Rolling,Strumming Body Position Supine Comments in ian stretch position, c/r hip flexion Joint Mobilizations innominate Joint L Direction PA Body Position Sidelying Comments c/r hip flexion PT-OP-T Assessment and Plan Start: 11/01/24 17:23 Freq: Status: Active Protocol: Document 01/01/25 07:31 GG (Rec: 01/01/25 08:23 GG [id number]) Physical Therapy Assessment Goals ROM Short Term Goal (STG Pt will have full knee ext w/o inc pain in L knee ) 12/04 - improving 12/25-improves after manual STG Duration 01/01 Fdc Goal (LTG) Pt will have at least 130 deg flex L knee to allow greater ease w/yoga activities 12/04 - improving 12/25-improves LTG Duration 01/29 strength Manager Bilingual Goal (LTG) pt will score at least 5/5 on BLE MMT to show improved stability in order to allow greater ease with activity. 12/04 - improving 12/25-n/t but improved strength noted by exercises performance LTG Duration 01/29 pain Manager Bilingual Goal (LTG) Pt will report being able to consistantly transition from sitting to standing w/o inc pain or feeling of lack of stability. 12/04 - no pain, only c/o instability after prolonged sitting 12/25 no change LTG Duration 01/29 Assessment Summary Assessment Pt is making good progress w/ exercises and balance. Had good response to manual interventions w/ improved motion and symptoms following. Physical Therapy Plan Frequency and Duration Frequency of 1x/Week Treatment Duration of 5 treatment (weeks) Plan of Care Start 12/25/24 Date Plan of Care End 01/29/25 Date Therapeutic Interventions Therapeutic Balance Training,Gait Training,Home Exercise Program, Interventions Joint Mobilizations,Manual Therapy,Neuromuscular Re- education,Patient/Caregiver Education,Self-Care/Home Management,Soft Tissue Mobilization,Taping,Therapeutic Activities,Therapeutic Exercises Modalities Cold Pack/Ice Massage,Electric Stimulation,Hot Packs, Infrared Therapy,Ultrasound Next Visit Focus/Plan Next Note Type Discharge Summary Next Visit Plan prep HEP for d/c, foam rolling for quad
--- NOTE | 2025-01-16 18:14 | PT.OTN ---
Current Diagnoses Pain in left knee (01/16/25) Other specified postprocedural states (01/16/25) Physical Therapy Treatment Note PT-OP-A Visit Information Start: 11/01/24 17:23 Freq: Status: Active Protocol: Document 01/16/25 17:02 [facility] (Rec: 01/16/25 18:13 [facility] [id number]) Out-Patient Physical Therapy Visit Information Visit Information Visit Type Discharge Summary Visit Start Time 17:05 Visit Stop Time 17:45 Visit Number 13 Number of WILTON WEAVER Visits 0 PT-OP-B Current Condition Start: 11/01/24 17:23 Freq: Status: Active Protocol: Document 11/06/24 07:30 [facility] (Rec: 11/06/24 08:19 [facility] [id number]) Current Condition History of Current Condition Onset Date progressive worse since 2009 Current Complaints L knee pain History of Current Pt reports she is very active and when she has been Condition dong things then sits then when she gets up, she has to be slow because it feels like she can't put weight into her knee and get moving right away. M,W, F goes for weight classes and goes 2-4 mile walks. Her knee can get tired after walks. Had R WILSON 2 years ago that is good. She does short bouts of run. She had med meniscectomy in 2009 after injury when windsurfing. Did PT after, but only did a couple sessions then worked on her own. Since then over time, she thinks she got some scaring and now she is noticing her flexibility is worse and doesn't have the same ROM in knee. In 2000, broke tibia and fibula when skiing and still has a miranda and screws there. Notes more swelling in L knee. In 2017, went to see ortho d/t c/o pain in knee and the doctor thought she may need knee replacement. She has been able to avoid TKA so far. Does not feel pain typically when up or when doing exercise classes. After pickleball and doing her daily activities and sits int he evening, then it hurts when she stands up from sitting. When doing yoga, notices change in her flexibility. used to go to line dancing but it is a lot of lateral movement and she would have pain in her knee. Denies back pain. L post hip occ feels something but not super frequent. Treatment Goals Patient/Caregiver get flexibility, Goals PT-OP-C Subjective Start: 11/01/24 17:23 Freq: Status: Active Protocol: Document 01/16/25 17:02 [facility] (Rec: 01/16/25 18:13 [facility] [id number]) OP-PT Subjective Patient Comments Patient Comments Pt feels ok about today being last day. Improved since start PT-OP-D Balance Start: 11/01/24 17:23 Freq: Status: Active Protocol: Document 11/06/24 07:30 [facility] (Rec: 11/06/24 08:19 [facility] [id number]) Balance Tests Single Limb Standing Single Limb- Right >30 sec Single Limb- Left >30sec PT-OP-G Mobility & Gait Start: 11/01/24 17:23 Freq: Status: Active Protocol: Document 11/06/24 07:30 [facility] (Rec: 11/06/24 08:19 [facility] [id number]) OP Gait Assessment Comments Gait Comments harder impact on LLE w/dec push off R>L, L hip add and IR during swing PT-OP-J Posture/Palpation/Skin Start: 11/01/24 17:23 Freq: Status: Active Protocol: Document 11/06/24 07:30 [facility] (Rec: 11/06/24 08:19 [facility] [id number]) Posture Evaluation [facility] Postural Classification System Lumbar Protective 1 Mechanism Left AP Lumbar Protective 2 Mechanism Right AP Lumbar Protective 3 Mechanism Left PA Lumbar Protective 2 Mechanism Right PA Comments Posture Comments varus of L tibia, L>R femoral IR, tibial ER L, B hallux valgus, valgus L rearfoot PT-OP-K Range of Motion Start: 11/01/24 17:23 Freq: Status: Active Protocol: Document 01/16/25 17:02 [facility] (Rec: 01/16/25 18:13 [facility] [id number]) Knee Goniometric Range of Motion Knee Left Flexion Active ( 129 degrees) Extension Active ( 0 degrees) PT-OP-L Special Tests Start: 11/01/24 17:23 Freq: Status: Active Protocol: Document 11/06/24 07:30 [facility] (Rec: 11/06/24 08:19 [facility] [id number]) Special Tests Knee Special Tests Straight Leg Raise Test Results WNL about 90 deg B Ian Comments quad and RF tightness L, R RF tightness Thessaly Test 20 Degrees Comments neg L Apley's Compression Comments neg L Jose Antonio Test Comments neg L Varus- 25 Degrees Comments neg L Valgus- 25 Degrees Comments neg L Posterior Draw Comments neg L Esteban's Comments neg L PT-OP-M Strength Start: 11/01/24 17:23 Freq: Status: Active Protocol: Document 01/16/25 17:02 [facility] (Rec: 01/16/25 18:13 [facility] [id number]) Hip Strength Hip Manual Muscle Testing Right Flexion (L2) 5 Normal Extension (S1) 4+ Good+ Abduction 5 Normal Adduction 5 Normal External Rotation 5 Normal Internal Rotation 5 Normal Left Flexion (L2) 5 Normal Extension (S1) 5 Normal Abduction 5 Normal Adduction 5 Normal External Rotation 5 Normal Internal Rotation 5 Normal Knee Strength Knee Manual Muscle Testing Right Flexion (S2) 5 Normal Extension (L3) 5 Normal Left Flexion (S2) 5 Normal Extension (L3) 5 Normal Ankle/Foot Strength Ankle and Foot Manual Muscle Testing Right Dorsiflexion (L4) 5 Normal Plantarflexion (S1) 5 Normal Comments 20 heel raises B Left Dorsiflexion (L4) 5 Normal Plantarflexion (S1) 5 Normal PT-OP-Q Treatments Start: 11/01/24 17:23 Freq: Status: Active Protocol: Document 01/16/25 17:02 [facility] (Rec: 01/16/25 18:13 [facility] [id number]) Gym Equipment Therapeutic Ball HS curls Ball Size/Color 55cm Body Position Supine Reps/Duration 10 Comments bridge w/curl Therapeutic Exercises Supine Exercises bridges Supine Exercise Name alt UE ext Side bilateral Reps/Minutes 15 Standing Exercises gait at wall Side bilateral Reps/Minutes 10 sec x5 Comments cues posture lat lunges Side bilateral Reps/Minutes 10 Comments cues knee position SL slider Standing Exercise [address] way Name Side bilateral Reps/Minutes 10 Comments cues knee position sidesteps Side bilateral Equipment Used Lvl 2 ankles Reps/Minutes 20ft Comments cues band tie tight lunges Standing Exercise 1. in place 2. lunge then september walking Name Side bilateral Reps/Minutes 1. 5 2. 20ft squats Side bilateral Equipment Used L2 at knees Reps/Minutes 2x10 Comments cues knee and foot position Other Exercises self mob Other Exercise Name fib PA quadruped Side left Reps/Minutes 10 Manual Therapy Treatment Consent Patient gave verbal Yes consent for manual treatment Soft Tissue Mobilization Quad Body Location L Mobilization Type Rolling,Strumming Body Position Supine Comments cupping and manual w/flex ITB Comments cupping w/flex Joint Mobilizations tibfib Comments PA w/APs tibiofemoral Comments PA w/APs patellofemoral Joint sup and inf PT-OP-T Assessment and Plan Start: 11/01/24 17:23 Freq: Status: Active Protocol: Document 01/16/25 17:02 [facility] (Rec: 01/16/25 18:13 [facility] [id number]) Physical Therapy Assessment Goals ROM Short Term Goal (STG Pt will have full knee ext w/o inc pain in L knee ) 12/04 - improving 12/25-improves after manual STG Duration achieved 01/16 Engagement Executive Goal (LTG) Pt will have at least 130 deg flex L knee to allow greater ease w/yoga activities 12/04 - improving 12/25-improves 01/16-129 LTG Duration 01/29 strength Engagement Executive Goal (LTG) pt will score at least 5/5 on BLE MMT to show improved stability in order to allow greater ease with activity. 12/04 - improving 12/25-n/t but improved strength noted by exercises performance LTG Duration mostly achieved pain Engagement Executive Goal (LTG) Pt will report being able to consistantly transition from sitting to standing w/o inc pain or feeling of lack of stability. 12/04 - no pain, only c/o instability after prolonged sitting 12/25 no change 01/16-only takes 10 sec to go away now and less intense and has to be greater than 1 hr LTG Duration 01/29 Assessment Summary Assessment Pt made good progress and has made progress towards all goals. She is indep w/her HEP and required min cueing. DC to HEP Physical Therapy Plan Discharge Physical Therapy Discharge Comments pt improved and indep w/HEP
== END 2025-01-18 14:28 | disposition home or self-care (01) ==
LOC: PHYS 17:00
PROVIDERS: Family Provider Student in an Organized Health Care Education/Training Program; PCP Student in an Organized Health Care Education/Training Program; Referring Provider Student in an Organized Health Care Education/Training Program; Visit Provider Student in an Organized Health Care Education/Training Program
DX: Z98.890 Other specified postprocedural states (principal); M25.562 Pain in left knee
CPT/HCPCS: 97110; 97112; 97140; 97162; 97535